=== PATIENT | male | born 1950 | race Two or more races ===

== ENCOUNTER 2016-11-21 17:44 | Inpatient (IN) | payer OTHER, MEDICAID ==
[~2016-11-21] VITALS: Ht 190.5 cm; Wt 146.3 kg
[2016-11-21 18:57] LABS: Basophils # (auto) 0.1 uL; Basophils % (auto) 0.5 % (0.0-2.0); Eosinophils # (auto) 0.5 uL; Eosinophils % (auto) 4.7 % (0.0-7.0); Hematocrit 46.6 % (41.0-53.0); Hemoglobin 15.1 g/dL (13.5-17.5); Lymphocytes # (auto) 2.2 uL; Lymphocytes % (auto) 21.5 % (10.0-50.0); Mean Corpuscular Hemoglobin 29.4 pg (28.0-32.0); Mean Corpuscular Hgb Conc. 32.4 g/dL (32.0-36.0); Mean Corpuscular Volume 90.9 fL (80.0-100.0); Mean Platelet Volume 9.1 fL (7.4-10.4); Monocytes # (auto) 0.7 uL; Monocytes % (auto) 6.5 % (0.0-12.0); Neutrophils # (auto) 6.8 uL; Neutrophils % (auto) 66.8 % (37.0-80.0); Platelet Count (auto) 257 10^3/uL (140-450); Red Cell Distribution Width 14.9 % (11.6-16.0); White Blood Cell 10.2 10^3/uL (4.4-10.8)
[2016-11-21 19:11] LABS: Albumin 3.6 g/dL (3.4-5.0); BUN/Creatinine Ratio 21.6; Calcium 8.1 mg/dL (8.5-10.1); Magnesium 2.3 mg/dL (1.6-2.6); Potassium 3.1 mmol/L (3.5-5.1)
[2016-11-21 19:14] LABS: Bilirubin, Total 0.8 mg/dL (0.2-1.0); Total Protein 7.9 g/dL (6.4-8.2)
[2016-11-21 19:21] LABS: B-Type Natriuretic Peptide 23.22 pg/mL (0-100)
[2016-11-21 19:42] LABS: Temperature: 21.9 C (20.0-25.0)
[2016-11-22 05:03] LABS: INR 1.05 (0.9-1.15); Partial Thromboplastin Time 29.7 sec (22.64-33.71); Prothrombin Time 10.8 sec (9.37-12.3)
[2016-11-22] MEDS ORDERED: FUROSEMIDE 40 MG/4 ML VIAL IV ONE (08:00)
[2016-11-22] MEDS ORDERED: VANCOMYCIN 1GM/250ML D5W 250 ML IV ONE (08:00)
[2016-11-22] MEDS ORDERED: cefTRIAXone 1GM/50ML D5W 50 ML IV ONE (08:00)
[2016-11-22] MEDS ORDERED: AMLO10TA2 (08:43)
[2016-11-22] MEDS ORDERED: POTA8TAB2 (08:43)
[2016-11-22] MEDS ORDERED: PAR20T (08:43)
[2016-11-22] MEDS ORDERED: FURO40TA4 (08:43)
[2016-11-22] MEDS ORDERED: DIAZ10TA3 (08:43)
[2016-11-22] MEDS ORDERED: CARV3.1240 (08:43)
[2016-11-22] MEDS ORDERED: POTASSIUM CHL 20 Meq TABLET PO ONE (09:15)
[2016-11-22] MEDS ORDERED: DEXTROSE (50%) 50ML SYRG IV PRN (09:30)
[2016-11-22] MEDS ORDERED: ALBUTEROL SULF 2.5 MG/0.5ML(0.5%) NEB SOLN NEB PRN (09:30)
[2016-11-22] MEDS ORDERED: PROMETHAZINE HCL 25 MG/ML 1ML IV PRN (09:30)
[2016-11-22] MEDS ORDERED: LORazepam 0.5 MG TAB PO PRN (09:30)
[2016-11-22] MEDS ORDERED: HYDROcodone-ACET 5/325MG TAB PO PRN (09:30)
[2016-11-22] MEDS ORDERED: ACETAMINOPHEN 500 MG TAB PO PRN (09:30)
[2016-11-22] MEDS ORDERED: TEMAZEPAM 15 MG CAP PO PRN (09:30)
[2016-11-22] MEDS ORDERED: LACTULOSE 20Gm/30ML SOLN PO PRN (09:30)
[2016-11-22] MEDS ORDERED: MORPHINE SULF INJ 2 MG/ML SYRINGE 1ML IV PRN ×2 (09:30)
[2016-11-22] MEDS ORDERED: NITROGLYCERIN 0.4 MG SL TAB SL PRN (09:30)
[2016-11-22] MEDS: ENOXAPARIN SOD 40 MG/0.4 ML SYRINGE SC SCH (10:00)
[2016-11-22] MEDS: CLINDAMYCIN 600MG IV 50 ML IV SCH ×2 (10:00→17:38)
[2016-11-22 10:30] VITALS: BP 121/84
[2016-11-22] MEDS: ACCU-CHEK COMFORT CURVE STRIP VI SCH ×3 (12:00→23:54)
[2016-11-22] MEDS: POTASSIUM CHL 20 Meq TABLET PO SCH (12:40)
[2016-11-22 13:01] VITALS: BP 134/79
[2016-11-22 17:44] VITALS: BP 134/80
[2016-11-22 20:49] VITALS: BP 134/80
[2016-11-22 22:13] VITALS: BP 126/73
[2016-11-23] MEDS: CLINDAMYCIN 600MG IV 50 ML IV SCH ×2 (02:00→11:29)
[2016-11-23 04:37] LABS: Urine Bilirubin Negative (Negative); Urine Blood Negative /uL (Negative); Urine Color Yellow (Yellow); Urine Glucose Normal (Normal); Urine Ketone Negative (Negative); Urine Mucus FEW (None Seen); Urine Nitrite Negative (Negative); Urine RBC 1 /hpf (0 - 3); Urine Squamous Epithelial Cell FEW /hpf (<5); Urine Urobilinogen Normal (Negative); Urine pH 5.5 (5.0-8.0)
[2016-11-23 05:14] VITALS: BP 125/75
[2016-11-23] MEDS: ACCU-CHEK COMFORT CURVE STRIP VI SCH (06:24)
[2016-11-23 07:55] LABS: Basophils # (auto) 0.1 uL; Basophils % (auto) 0.8 % (0.0-2.0); Eosinophils # (auto) 0.4 uL; Eosinophils % (auto) 5.5 % (0.0-7.0); Hematocrit 47.6 % (41.0-53.0); Hemoglobin 15.4 g/dL (13.5-17.5); Lymphocytes % (auto) 27.2 % (10.0-50.0); Mean Corpuscular Hemoglobin 29.5 pg (28.0-32.0); Mean Corpuscular Hgb Conc. 32.4 g/dL (32.0-36.0); Mean Platelet Volume 9.3 fL (7.4-10.4); Monocytes # (auto) 0.7 uL; Monocytes % (auto) 9.7 % (0.0-12.0); Neutrophils # (auto) 4.2 uL; Neutrophils % (auto) 56.8 % (37.0-80.0); Platelet Count (auto) 253 10^3/uL (140-450); Red Cell Distribution Width 15.2 % (11.6-16.0); White Blood Cell 7.4 10^3/uL (4.4-10.8)
[2016-11-23 08:21] LABS: Albumin 3.8 g/dL (3.4-5.0); BUN/Creatinine Ratio 27.3; Calcium 8.9 mg/dL (8.5-10.1); Potassium 3.5 mmol/L (3.5-5.1); Total Protein 7.8 g/dL (6.4-8.2)
[2016-11-23 08:24] LABS: B-Type Natriuretic Peptide 21.7 pg/mL (0-100)
[2016-11-23] MEDS: POTASSIUM CHL 20 Meq TABLET PO SCH (08:42)
[2016-11-23 08:54] VITALS: BP 119/74
[2016-11-23] MEDS ORDERED: cefTRIAXone 1GM/50ML D5W 50 ML IV SCH (09:00)
[2016-11-23] MEDS: ENOXAPARIN SOD 40 MG/0.4 ML SYRINGE SC SCH (10:00)
[2016-11-23] MEDS ORDERED: FUROSEMIDE 40 MG/4 ML VIAL IV SCH (10:00)
[2016-11-23 12:54] VITALS: BP 129/60
[2016-11-23] MEDS ORDERED: IOHEXOL 350 MG/ML 100ML IJ ONE (13:19)
[2016-11-23] MEDS ORDERED: NOR5T PO (14:41)
== END 2016-11-23 18:39 | disposition left against medical advice (07) | DRG 603 ==
LOC: ER 17:54 → TELE 17:55 → TELE-EAST 11-22 10:30
PROVIDERS: ADMIT Internal Medicine; ATTEND Internal Medicine
DX: L03.116 Cellulitis of left lower limb (principal); L03.115 Cellulitis of right lower limb; E66.01 Morbid (severe) obesity due to excess calories; E87.6 Hypokalemia; R73.9 Hyperglycemia, unspecified; I87.8 Other specified disorders of veins; Z82.49 Family history of ischemic heart disease and other diseases of the circulatory system; I10 Essential (primary) hypertension
CPT/HCPCS: 36415; 71020; 80053; 80061; 81001; 82550; 82962; 83036; 83735; 83880; 84443; 84484; 85025; 85049; 85379; 85610; 85652; 85730; 87040; 93005; 93306; 93970; 96365; 96367; 96375; J0696; J3490

== ENCOUNTER 2017-12-26 12:38 | Inpatient (IN) | payer OTHER, MEDICAID ==
[~2017-12-26] VITALS: Ht 190.5 cm; Wt 120.9 kg
[~2017-12-26 12:38] MED LIST: AMLO10TA2; CARV3.1240; DIAZ10TA3; FURO40TA4; HYDR-4683 PO; PAR20T; POTA8TAB2
[2017-12-26 14:03] LABS: Basophils # (auto) 0.1 uL; Basophils % (auto) 1.6 % (0.0-2.0); Eosinophils # (auto) 0.1 uL; Eosinophils % (auto) 1.6 % (0.0-7.0); Hematocrit 44.8 % (41.0-53.0); Lymphocytes # (auto) 0.4 uL; Lymphocytes % (auto) 5.6 % (10.0-50.0); Mean Corpuscular Hemoglobin 30.9 pg (28.0-32.0); Mean Corpuscular Hgb Conc. 33.4 g/dL (32.0-36.0); Mean Corpuscular Volume 92.5 fL (80.0-100.0); Monocytes # (auto) 0.7 uL; Monocytes % (auto) 9.1 % (0.0-12.0); Neutrophils # (auto) 5.9 uL; Neutrophils % (auto) 82.1 % (37.0-80.0); Nucleated Red Blood Cells % 0.2 %; Platelet Count (auto) 200 10^3/uL (140-450); Red Blood Cells 4.84 10^6/uL (4.5-5.90); Red Cell Distribution Width 14.4 % (11.8-14.3); White Blood Cell 7.2 10^3/uL (4.4-10.8)
[2017-12-26 14:12] LABS: Alanine Aminotransferase 18 U/L (16-61); Albumin 3.6 g/dL (3.4-5.0); Alkaline Phosphatase 86 U/L (45-117); Anion Gap 10 (5-15); Aspartate Aminotransferase 20 U/L (15-37); BUN/Creatinine Ratio 18.1; Bilirubin, Total 1.3 mg/dL (0.2-1.0); Blood Urea Nitrogen 17 mg/dL (7-18); Calcium 8.3 mg/dL (8.5-10.1); Carbon Dioxide 29 mmol/L (21-32); Chloride 101 mmol/L (98-107); GFR African American 102 mL/min; GFR Non-African American 85 mL/min; Glucose 95 mg/dL (74-106); Sodium 140 mmol/L (136-145); Total Protein 7.4 g/dL (6.4-8.2)
[2017-12-26 14:19] LABS: Potassium 2.7 mmol/L (3.5-5.1)
[2017-12-26] MEDS ORDERED: cefTRIAXone 1GM/10ml IVPUSH 10 ML IV ONE (18:00)
[2017-12-26] MEDS ORDERED: ACETAMINOPHEN 500 MG TAB PO ONE (18:00)
[2017-12-26 18:31] LABS: INR 0.99 (0.9-1.15); Partial Thromboplastin Time 28.3 sec (22.64-33.71); Prothrombin Time 10.8 sec (9.37-12.3)
[2017-12-26 19:17] LABS: Urine Bacteria FEW /hpf (None Seen); Urine Blood Negative /uL (Negative); Urine Mucus FEW (None Seen); Urine Specific Gravity 1.027 (1.001-1.035); Urine WBC 1 /hpf (0 - 3)
[2017-12-26] MEDS ORDERED: POTASSIUM CHL 20 Meq TABLET PO ONE ×2 (19:45)
[2017-12-26] MEDS ORDERED: ONDANSETRON HCL 4 MG/2 ML VIAL IV PRN (20:45)
[2017-12-26] MEDS ORDERED: ACETAMINOPHEN 325 MG TAB PO PRN (20:45)
[2017-12-26] MEDS ORDERED: TEMAZEPAM 15 MG CAP PO PRN (20:45)
[2017-12-26] MEDS ORDERED: DOCUSATE SOD 100 MG CAP PO PRN (20:45)
[2017-12-26 21:40] VITALS: BP 118/68
[2017-12-26] MEDS: GABAPENTIN 100 MG CAP PO SCH (22:29)
[2017-12-26] MEDS: CARVEDILOL 3.125 MG TAB PO SCH (22:30)
[2017-12-26] MEDS: FAMOTIDINE 20 MG TAB PO SCH (22:30)
[2017-12-27 00:15] VITALS: BP 118/68
[2017-12-27 05:00] VITALS: BP 131/79
[2017-12-27] MEDS: FUROSEMIDE 40 MG TAB PO SCH ×2 (06:12→18:20)
[2017-12-27 07:09] LABS: Hematocrit 40.5 % (41.0-53.0); Hemoglobin 13.7 g/dL (13.5-17.5); Mean Corpuscular Hemoglobin 31.2 pg (28.0-32.0); Mean Corpuscular Hgb Conc. 33.7 g/dL (32.0-36.0); Mean Corpuscular Volume 92.7 fL (80.0-100.0); Platelet Count (auto) 151 10^3/uL (140-450); Red Blood Cells 4.37 10^6/uL (4.5-5.90); Red Cell Distribution Width 14.7 % (11.8-14.3); White Blood Cell 5.9 10^3/uL (4.4-10.8)
[2017-12-27 07:17] LABS: Band Neutrophils % (manual) 0
[2017-12-27 07:18] LABS: Basophils % (manual) 0 (0.0-2.0); Blast Cells 0; Eosinophils % (manual) 0 (0-7); Metamyelocytes % 0; Myelocytes % 0; Promyelocytes % 0; Reactive Lymphocytes 0
[2017-12-27 07:25] LABS: BUN/Creatinine Ratio 21.5; Calcium 7.5 mg/dL (8.5-10.1)
[2017-12-27 07:35] LABS: Bilirubin, Total 0.9 mg/dL (0.2-1.0); Total Protein 6.3 g/dL (6.4-8.2)
[2017-12-27 08:07] LABS: Potassium 2.8 mmol/L (3.5-5.1)
[2017-12-27] MEDS ORDERED: POTASSIUM CHLORIDE 40 MEQ, LIDOCAINE 1% (LOCAL ANESTH.) 4 ML in SODIUM CHL 0.9% 100 ML IV ONE (08:15)
[2017-12-27] MEDS ORDERED: POTASSIUM CHL 20 Meq TABLET PO ONE ×2 (08:15→17:00)
[2017-12-27] MEDS ORDERED: SOD CHL 0.9%/ KCL 40MEQ 1,000 ML IV SCH (08:15)
[2017-12-27 09:00] VITALS: BP 109/63
[2017-12-27] MEDS: amLODIPine BESYLATE 5 MG TAB PO SCH (09:37)
[2017-12-27] MEDS: FAMOTIDINE 20 MG TAB PO SCH ×2 (09:37→22:34)
[2017-12-27] MEDS: GABAPENTIN 100 MG CAP PO SCH ×2 (09:37→22:35)
[2017-12-27] MEDS: ENOXAPARIN SOD 40 MG/0.4 ML SYRINGE SC SCH (09:38)
[2017-12-27] MEDS: CARVEDILOL 3.125 MG TAB PO SCH ×2 (09:38→22:35)
[2017-12-27 10:18] LABS: Lymphocytes % (manual) 19 (10.0-50.0); Monocytes % (manual) 19 (0-12)
[2017-12-27 13:00] VITALS: BP 108/72
[2017-12-27] MEDS ORDERED: MAGNESIUM SULFATE 1GM/100ML 100 ML IV ONE (13:00)
[2017-12-27] MEDS: HYDROcodone-ACET 5/325MG TAB PO PRN (15:29)
[2017-12-27 16:29] LABS: Magnesium 2.7 mg/dL (1.6-2.6); Potassium 3.3 mmol/L (3.5-5.1)
[2017-12-27] MEDS: PROMETHAZINE W/CODEINE 5 ML ORAL SYRUP PO PRN (16:34)
[2017-12-27 17:20] VITALS: BP 108/66
[2017-12-27] MEDS: BUDESONIDE (INHALATION) 0.5 MG/2 ML NEB NEB SCH (19:33)
[2017-12-27] MEDS: ALBUTEROL SULF 2.5 MG/0.5ML(0.5%) NEB SOLN NEB SCH (19:33)
[2017-12-27 22:00] VITALS: BP 113/69
[2017-12-27] MEDS ORDERED: cefTRIAXone 1GM/10ml IVPUSH 10 ML IV SCH (22:00)
[2017-12-27] MEDS: POTASSIUM CHL 20 Meq TABLET PO SCH (22:34)
[2017-12-28 01:27] VITALS: BP 108/66
[2017-12-28 05:00] VITALS: BP 133/74
[2017-12-28] MEDS: FUROSEMIDE 40 MG TAB PO SCH ×2 (06:00→18:45)
[2017-12-28 06:09] LABS: Albumin 3.1 g/dL (3.4-5.0); BUN/Creatinine Ratio 23.4; Bilirubin, Total 0.6 mg/dL (0.2-1.0); Calcium 7.9 mg/dL (8.5-10.1); Magnesium 2.4 mg/dL (1.6-2.6); Potassium 3.4 mmol/L (3.5-5.1); Total Protein 6.8 g/dL (6.4-8.2)
[2017-12-28] MEDS: ALBUTEROL SULF 2.5 MG/0.5ML(0.5%) NEB SOLN NEB SCH ×4 (06:42→18:00)
[2017-12-28 08:22] VITALS: BP 126/71
[2017-12-28] MEDS: FAMOTIDINE 20 MG TAB PO SCH (09:29)
[2017-12-28] MEDS: amLODIPine BESYLATE 5 MG TAB PO SCH (09:30)
[2017-12-28] MEDS: GABAPENTIN 100 MG CAP PO SCH (09:31)
[2017-12-28] MEDS: CARVEDILOL 3.125 MG TAB PO SCH (09:31)
[2017-12-28] MEDS: POTASSIUM CHL 20 Meq TABLET PO SCH (09:31)
[2017-12-28] MEDS: ENOXAPARIN SOD 40 MG/0.4 ML SYRINGE SC SCH (09:33)
[2017-12-28] MEDS: BUDESONIDE (INHALATION) 0.5 MG/2 ML NEB NEB SCH (10:45)
[2017-12-28 12:43] VITALS: BP 131/77
[2017-12-28] MEDS ORDERED: ALBUAER3 IN (16:10)
[2017-12-28] MEDS ORDERED: AZIT500T4 PO (16:10)
[2017-12-28] MEDS ORDERED: PRED1PAK9 PO (16:10)
[2017-12-28] MEDS: PROMETHAZINE W/CODEINE 5 ML ORAL SYRUP PO PRN (16:12)
[2017-12-28] MEDS: HYDROcodone-ACET 5/325MG TAB PO PRN (16:13)
[2017-12-28 16:21] VITALS: BP 124/81
[2017-12-29] MEDS ORDERED: PRED1PAK9 PO (11:50)
[2017-12-29] MEDS ORDERED: ALBUAER3 IN (11:50)
[2017-12-29] MEDS ORDERED: AZIT500T4 PO (11:50)
== END 2017-12-28 19:00 | disposition home or self-care (01) | DRG 202 ==
LOC: ER 12:38 → OVERFLOW 12:39 → TELE-WESTW 21:28
PROVIDERS: ADMIT Nurse Practitioner; ATTEND Hospitalist
DX: J20.9 Acute bronchitis, unspecified (principal); J18.1 Lobar pneumonia, unspecified organism; I11.0 Hypertensive heart disease with heart failure; I50.9 Heart failure, unspecified; E87.6 Hypokalemia; E78.5 Hyperlipidemia, unspecified; Z82.49 Family history of ischemic heart disease and other diseases of the circulatory system
CPT/HCPCS: 36415; 71046; 80053; 81001; 83605; 83735; 83880; 84132; 84484; 85007; 85025; 85027; 85610; 85730; 87040; 87804; 93005; 94640; 94761; 96374; J2001

== ENCOUNTER 2018-07-29 16:46 | Inpatient (IN) | payer OTHER, MEDICAID ==
[~2018-07-29] VITALS: Ht 190.5 cm; Wt 116.2 kg
[~2018-07-29 16:46] MED LIST changes: +ALBUAER3 IN; +AMLO10TA12; -AMLO10TA2; +AZIT500T4 PO; +PRED1PAK9 PO
[2018-07-29 17:39] LABS: Basophils # (auto) 0.1 uL; Basophils % (auto) 0.8 % (0.0-2.0); Eosinophils # (auto) 0.7 uL; Hematocrit 44.1 % (41.0-53.0); Hemoglobin 14.9 g/dL (13.5-17.5); Lymphocytes # (auto) 1.4 uL; Lymphocytes % (auto) 17.6 % (10.0-50.0); Mean Corpuscular Hemoglobin 31.3 pg (28.0-32.0); Mean Corpuscular Hgb Conc. 33.7 g/dL (32.0-36.0); Mean Corpuscular Volume 92.9 fL (80.0-100.0); Monocytes % (auto) 12.7 % (0.0-12.0); Neutrophils % (auto) 60.9 % (37.0-80.0); Nucleated Red Blood Cells % 0.3 %; Platelet Count (auto) 225 10^3/uL (140-450); Red Blood Cells 4.75 10^6/uL (4.5-5.90); White Blood Cell 8.2 10^3/uL (4.4-10.8)
[2018-07-29 17:55] LABS: Alanine Aminotransferase 17 U/L (16-61); Albumin 3.5 g/dL (3.4-5.0); Anion Gap 9 (5-15); Aspartate Aminotransferase 16 U/L (15-37); BUN/Creatinine Ratio 25.3; Blood Urea Nitrogen 23 mg/dL (7-18); Calcium 8.5 mg/dL (8.5-10.1); Carbon Dioxide 30 mmol/L (21-32); Chloride 104 mmol/L (98-107); GFR African American 106 mL/min; GFR Non-African American 88 mL/min; Glucose 90 mg/dL (74-106); Magnesium 2.3 mg/dL (1.6-2.6); Potassium 3.5 mmol/L (3.5-5.1); Sodium 143 mmol/L (136-145)
[2018-07-29 18:00] LABS: Alkaline Phosphatase 111 U/L (45-117); Bilirubin, Total 0.7 mg/dL (0.2-1.0); Total Protein 7.4 g/dL (6.4-8.2)
[2018-07-29 19:50] LABS: INR 0.93 (0.9-1.15); Partial Thromboplastin Time 28.9 sec (23.78-33.04)
[2018-07-29] MEDS ORDERED: ACETAMINOPHEN 325 MG TAB PO PRN (21:15)
[2018-07-29] MEDS ORDERED: cefTRIAXone 1GM/10ml IVPUSH 10 ML IV ONE (21:15)
[2018-07-29] MEDS ORDERED: ONDANSETRON HCL 4 MG/2 ML VIAL IV PRN (21:15)
[2018-07-29] MEDS ORDERED: HYDROcodone-ACET 5/325MG TAB PO PRN (21:15)
[2018-07-29] MEDS ORDERED: GABAPENTIN 100 MG CAP PO ONE (21:15)
[2018-07-29] MEDS ORDERED: DOCUSATE SOD 100 MG CAP PO PRN (21:15)
[2018-07-29] MEDS ORDERED: POTASSIUM CHLORIDE 8 MEQ TAB PO ONE (21:45)
[2018-07-29] MEDS: GABAPENTIN 100 MG CAP PO SCH (22:00)
[2018-07-29] MEDS: FAMOTIDINE 20 MG TAB PO SCH (22:17)
[2018-07-29] MEDS: CARVEDILOL 3.125 MG TAB PO SCH (22:17)
[2018-07-29 23:10] VITALS: BP 119/69
[2018-07-29] MEDS: CLINDAMYCIN 600MG IV 50 ML IV SCH (23:45)
[2018-07-30] MEDS ORDERED: LISI-285 PO (00:09)
[2018-07-30 00:19] VITALS: BP 119/69
[2018-07-30] MEDS ORDERED: diphenhdrAMINE HCL 50 MG/1 ML VL IV ONE (00:20)
[2018-07-30] MEDS ORDERED: methylPREDNISolone SOD SUCC 125 MG/2 ML VL IV ONE (00:20)
[2018-07-30] MEDS ORDERED: TEMAZEPAM 15 MG CAP PO ONE (00:20)
[2018-07-30 05:00] VITALS: BP 117/65
[2018-07-30] MEDS: CLINDAMYCIN 600MG IV 50 ML IV SCH ×2 (05:54→14:21)
[2018-07-30 07:18] LABS: Basophils # (auto) 0 uL; Basophils % (auto) 0.2 % (0.0-2.0); Eosinophils # (auto) 0 uL; Eosinophils % (auto) 0.4 % (0.0-7.0); Hematocrit 45.4 % (41.0-53.0); Hemoglobin 15.6 g/dL (13.5-17.5); Lymphocytes # (auto) 0.6 uL; Lymphocytes % (auto) 11.4 % (10.0-50.0); Mean Corpuscular Hgb Conc. 34.3 g/dL (32.0-36.0); Mean Corpuscular Volume 93.2 fL (80.0-100.0); Monocytes # (auto) 0.1 uL; Monocytes % (auto) 1.8 % (0.0-12.0); Neutrophils # (auto) 4.5 uL; Neutrophils % (auto) 86.2 % (37.0-80.0); Platelet Count (auto) 203 10^3/uL (140-450); Red Blood Cells 4.87 10^6/uL (4.5-5.90); White Blood Cell 5.2 10^3/uL (4.4-10.8)
[2018-07-30 07:40] LABS: Albumin 3.5 g/dL (3.4-5.0); BUN/Creatinine Ratio 26.7; Bilirubin, Total 0.8 mg/dL (0.2-1.0); Calcium 8.7 mg/dL (8.5-10.1); Potassium 3.5 mmol/L (3.5-5.1); Total Protein 7.7 g/dL (6.4-8.2)
[2018-07-30 09:00] VITALS: BP 127/79
[2018-07-30] MEDS ORDERED: cefTRIAXone 1GM/10ml IVPUSH 10 ML IV SCH (09:00)
[2018-07-30] MEDS ORDERED: PARoxetine 20 MG TAB PO SCH (10:00)
[2018-07-30] MEDS: GABAPENTIN 100 MG CAP PO SCH (10:00)
[2018-07-30] MEDS ORDERED: ENOXAPARIN SOD 40 MG/0.4 ML SYRINGE SC SCH (10:00)
[2018-07-30] MEDS ORDERED: FUROSEMIDE 40 MG TAB PO SCH (10:00)
[2018-07-30] MEDS ORDERED: amLODIPine BESYLATE 5 MG TAB PO SCH (10:00)
[2018-07-30] MEDS ORDERED: predniSONE 5 MG TAB PO SCH (10:00)
[2018-07-30] MEDS ORDERED: POTASSIUM CHLORIDE 8 MEQ TAB PO SCH (10:00)
[2018-07-30] MEDS: FAMOTIDINE 20 MG TAB PO SCH (10:08)
[2018-07-30] MEDS: CARVEDILOL 3.125 MG TAB PO SCH (10:09)
[2018-07-30 13:00] VITALS: BP 126/68
[2018-07-30] MEDS ORDERED: IOHEXOL 350 MG/ML 100ML IJ ONE (16:36)
[2018-07-30 17:00] VITALS: BP 124/76
[2018-07-30] MEDS ORDERED: LEVOFLOXACIN 500MG 100 ML IV ONE (17:15)
[2018-07-30] MEDS ORDERED: CLIN1CAP4 PO (17:57)
[2018-07-30] MEDS ORDERED: LEVO500T21 PO (17:57)
[2018-07-30 18:49] VITALS: BP 124/76
[2018-07-31] MEDS ORDERED: LEVOFLOXACIN 500MG 100 ML IV SCH (10:00)
== END 2018-07-30 20:25 | disposition home health service (06) | DRG 603 ==
LOC: ER 16:53 → EAST 16:54
PROVIDERS: ADMIT Nurse Practitioner; ATTEND Internal Medicine
DX: L03.116 Cellulitis of left lower limb (principal); L03.115 Cellulitis of right lower limb; E78.5 Hyperlipidemia, unspecified; I11.0 Hypertensive heart disease with heart failure; I50.9 Heart failure, unspecified; I27.20 Pulmonary hypertension, unspecified; I87.2 Venous insufficiency (chronic) (peripheral); Z82.49 Family history of ischemic heart disease and other diseases of the circulatory system; Z79.899 Other long term (current) drug therapy
CPT/HCPCS: 36415; 71046; 71275; 80053; 83735; 83880; 84484; 85025; 85379; 85610; 85730; 87040; 93005; 93970; 96374; 96375; J0696; J1956; J3490

== ENCOUNTER 2018-08-24 16:54 | Inpatient (IN) | payer OTHER, MEDICAID ==
[~2018-08-24] VITALS: Ht 185.4 cm; Wt 115.7 kg
[~2018-08-24 16:54] MED LIST changes: -AZIT500T4 PO; +CLIN1CAP4 PO; +LEVO500T21 PO; +LISI-285 PO; -PRED1PAK9 PO
[2018-08-24] MEDS ORDERED: SODIUM CHLORIDE 0.9% 500 ML IV ONE (18:28)
[2018-08-24] MEDS ORDERED: MORPHINE SULFATE 4 MG/ML SYR/VIAL IV ONE (18:30)
[2018-08-24] MEDS ORDERED: ONDANSETRON HCL 4 MG/2 ML VIAL IV ONE (18:30)
[2018-08-24 18:36] LABS: Basophils # (auto) 0.1 uL; Basophils % (auto) 0.7 % (0.0-2.0); Eosinophils # (auto) 0.8 uL; Eosinophils % (auto) 10.1 % (0.0-7.0); Hematocrit 46.5 % (41.0-53.0); Hemoglobin 15.7 g/dL (13.5-17.5); Lymphocytes # (auto) 1.8 uL; Lymphocytes % (auto) 21.5 % (10.0-50.0); Mean Corpuscular Hemoglobin 31.5 pg (28.0-32.0); Mean Corpuscular Hgb Conc. 33.8 g/dL (32.0-36.0); Mean Corpuscular Volume 93.2 fL (80.0-100.0); Monocytes # (auto) 1.1 uL; Monocytes % (auto) 13.3 % (0.0-12.0); Neutrophils # (auto) 4.5 uL; Neutrophils % (auto) 54.4 % (37.0-80.0); Nucleated Red Blood Cells % 0.1 %; Platelet Count (auto) 220 10^3/uL (140-450); Red Blood Cells 4.99 10^6/uL (4.5-5.90); Red Cell Distribution Width 15.6 % (11.8-14.3); White Blood Cell 8.3 10^3/uL (4.4-10.8)
[2018-08-24 18:57] LABS: Alanine Aminotransferase 16 U/L (16-61); Anion Gap 11 (5-15); Aspartate Aminotransferase 15 U/L (15-37); BUN/Creatinine Ratio 17.8; Blood Urea Nitrogen 16 mg/dL (7-18); Calcium 8.5 mg/dL (8.5-10.1); Carbon Dioxide 28 mmol/L (21-32); Chloride 102 mmol/L (98-107); GFR African American 107 mL/min; GFR Non-African American 89 mL/min; Glucose 92 mg/dL (74-106); Magnesium 2.2 mg/dL (1.6-2.6); Potassium 3.1 mmol/L (3.5-5.1); Sodium 141 mmol/L (136-145)
[2018-08-24 19:02] LABS: Alkaline Phosphatase 99 U/L (45-117); Total Protein 7.7 g/dL (6.4-8.2)
[2018-08-24] MEDS ORDERED: CLINDAMYCIN 600MG IV 50 ML IV ONE (19:45)
[2018-08-24] MEDS ORDERED: GABAPENTIN 100 MG CAP PO ONE (19:45)
[2018-08-24] MEDS ORDERED: diphenhdrAMINE HCL 50 MG/1 ML VL IV ONE (21:00)
[2018-08-24] MEDS ORDERED: cefTRIAXone 1GM/50ML D5W 50 ML IV ONE (21:45)
[2018-08-24] MEDS ORDERED: ACETAMINOPHEN 325 MG TAB PO PRN (21:45)
[2018-08-24] MEDS ORDERED: TEMAZEPAM 15 MG CAP PO PRN (21:45)
[2018-08-24] MEDS ORDERED: ONDANSETRON HCL 4 MG/2 ML VIAL IV PRN (21:45)
[2018-08-24] MEDS: TRIAMCINOLONE ACET 0.1% TOPICAL CREAM 15GM TOP SCH (22:00)
[2018-08-24] MEDS: CLINDAMYCIN 600MG IV 50 ML IV SCH (22:00)
[2018-08-24] MEDS: HYDROcodone-ACET 5/325MG TAB PO PRN (22:26)
[2018-08-24] MEDS: CARVEDILOL 3.125 MG TAB PO SCH (22:27)
[2018-08-24] MEDS: FAMOTIDINE 20 MG TAB PO SCH (22:27)
[2018-08-24] MEDS: GABAPENTIN 100 MG CAP PO SCH (22:27)
[2018-08-25] MEDS ORDERED: ALBUMIN 5% 250 ML IV ONE (00:45)
[2018-08-25] MEDS: CLINDAMYCIN 600MG IV 50 ML IV SCH ×3 (06:40→21:01)
[2018-08-25] MEDS: GABAPENTIN 100 MG CAP PO SCH ×3 (06:47→21:01)
[2018-08-25 07:29] LABS: Albumin 3.2 g/dL (3.4-5.0); Calcium 8.3 mg/dL (8.5-10.1); Potassium 3.3 mmol/L (3.5-5.1)
[2018-08-25 07:32] LABS: BUN/Creatinine Ratio 18.2; Bilirubin, Total 0.9 mg/dL (0.2-1.0); Total Protein 6.9 g/dL (6.4-8.2)
[2018-08-25 07:37] LABS: Basophils # (auto) 0 uL; Basophils % (auto) 0.9 % (0.0-2.0); Eosinophils # (auto) 0.6 uL; Eosinophils % (auto) 10.7 % (0.0-7.0); Hematocrit 44.3 % (41.0-53.0); Hemoglobin 14.7 g/dL (13.5-17.5); Lymphocytes # (auto) 1.6 uL; Lymphocytes % (auto) 28.4 % (10.0-50.0); Mean Corpuscular Hemoglobin 30.9 pg (28.0-32.0); Mean Corpuscular Hgb Conc. 33.1 g/dL (32.0-36.0); Mean Corpuscular Volume 93.2 fL (80.0-100.0); Monocytes # (auto) 0.7 uL; Monocytes % (auto) 13.2 % (0.0-12.0); Neutrophils # (auto) 2.6 uL; Neutrophils % (auto) 46.8 % (37.0-80.0); Platelet Count (auto) 188 10^3/uL (140-450); Red Blood Cells 4.75 10^6/uL (4.5-5.90); Red Cell Distribution Width 15.4 % (11.8-14.3); White Blood Cell 5.6 10^3/uL (4.4-10.8)
[2018-08-25] MEDS: cefTRIAXone 1GM/50ML D5W 50 ML IV SCH (09:00)
[2018-08-25 09:15] VITALS: BP 121/61
[2018-08-25] MEDS: PARoxetine 20 MG TAB PO SCH (10:00)
[2018-08-25] MEDS: TRIAMCINOLONE ACET 0.1% TOPICAL CREAM 15GM TOP SCH ×2 (10:00→21:01)
[2018-08-25] MEDS: ENOXAPARIN SOD 40 MG/0.4 ML SYRINGE SC SCH (10:00)
[2018-08-25] MEDS: HYDROcodone-ACET 5/325MG TAB PO PRN ×2 (10:50→14:30)
[2018-08-25] MEDS: HCTZ 25 MG TAB PO SCH (11:00)
[2018-08-25] MEDS: FAMOTIDINE 20 MG TAB PO SCH ×2 (11:00→21:01)
[2018-08-25] MEDS: LISINOPRIL 5 MG TAB PO SCH (11:00)
[2018-08-25] MEDS: CARVEDILOL 3.125 MG TAB PO SCH ×2 (11:00→21:12)
[2018-08-25] MEDS: FUROSEMIDE 40 MG TAB PO SCH (11:00)
[2018-08-25 13:13] VITALS: BP 100/51
[2018-08-25 16:38] VITALS: BP 91/48
[2018-08-25 19:39] VITALS: BP 135/78
[2018-08-25 20:00] VITALS: BP 110/61
[2018-08-25 22:00] VITALS: BP 110/61
[2018-08-26 05:00] VITALS: BP 119/71
[2018-08-26] MEDS: CLINDAMYCIN 600MG IV 50 ML IV SCH ×3 (05:52→21:34)
[2018-08-26] MEDS: GABAPENTIN 100 MG CAP PO SCH ×3 (05:52→21:36)
[2018-08-26 07:35] LABS: Basophils # (auto) 0 uL; Basophils % (auto) 0.7 % (0.0-2.0); Eosinophils # (auto) 0.4 uL; Eosinophils % (auto) 7.4 % (0.0-7.0); Hematocrit 44.2 % (41.0-53.0); Hemoglobin 14.9 g/dL (13.5-17.5); Lymphocytes # (auto) 1.2 uL; Lymphocytes % (auto) 20.4 % (10.0-50.0); Mean Corpuscular Hemoglobin 31.1 pg (28.0-32.0); Mean Corpuscular Hgb Conc. 33.8 g/dL (32.0-36.0); Mean Corpuscular Volume 92.2 fL (80.0-100.0); Monocytes # (auto) 0.7 uL; Monocytes % (auto) 12.7 % (0.0-12.0); Neutrophils # (auto) 3.4 uL; Neutrophils % (auto) 58.8 % (37.0-80.0); Nucleated Red Blood Cells % 0.1 %; Platelet Count (auto) 193 10^3/uL (140-450); Red Cell Distribution Width 15.7 % (11.8-14.3); White Blood Cell 5.8 10^3/uL (4.4-10.8)
[2018-08-26 07:46] LABS: BUN/Creatinine Ratio 18.2; Calcium 8.3 mg/dL (8.5-10.1); Magnesium 2.3 mg/dL (1.6-2.6); Potassium 3.4 mmol/L (3.5-5.1)
[2018-08-26] MEDS: cefTRIAXone 1GM/50ML D5W 50 ML IV SCH (08:50)
[2018-08-26] MEDS: PARoxetine 20 MG TAB PO SCH (08:52)
[2018-08-26] MEDS: ENOXAPARIN SOD 40 MG/0.4 ML SYRINGE SC SCH (08:52)
[2018-08-26] MEDS: FAMOTIDINE 20 MG TAB PO SCH ×2 (08:52→21:34)
[2018-08-26] MEDS: TRIAMCINOLONE ACET 0.1% TOPICAL CREAM 15GM TOP SCH ×2 (08:53→21:36)
[2018-08-26 09:00] VITALS: BP 105/59
[2018-08-26] MEDS ORDERED: diphenhdrAMINE HCL 12.5 MG/5 ML UD PO PRN (09:45)
[2018-08-26] MEDS: FUROSEMIDE 40 MG TAB PO SCH (10:00)
[2018-08-26] MEDS: CARVEDILOL 3.125 MG TAB PO SCH ×2 (10:00→21:35)
[2018-08-26] MEDS: HCTZ 25 MG TAB PO SCH (10:00)
[2018-08-26] MEDS: LISINOPRIL 5 MG TAB PO SCH (10:00)
[2018-08-26] MEDS: PIPERACILLIN-TAZOB 3.375GM 100 ML IV SCH ×3 (10:26→23:23)
[2018-08-26 13:00] VITALS: BP_SYST 115; BP_SYST 172; BP_DIAS 64; BP_DIAS 97
[2018-08-26 17:00] VITALS: BP 123/62
[2018-08-26 20:00] VITALS: BP 117/76
[2018-08-26] MEDS: HYDROcodone-ACET 5/325MG TAB PO PRN (20:08)
[2018-08-26 21:30] VITALS: BP 117/76
[2018-08-27] VITALS (7 sets, daily range): BP systolic 111–131; BP diastolic 66–79
[2018-08-27] MEDS: CLINDAMYCIN 600MG IV 50 ML IV SCH (05:09)
[2018-08-27] MEDS: GABAPENTIN 100 MG CAP PO SCH ×3 (06:15→22:47)
[2018-08-27] MEDS: PIPERACILLIN-TAZOB 3.375GM 100 ML IV SCH ×3 (06:15→17:49)
[2018-08-27 07:28] LABS: Basophils # (auto) 0.1 uL; Basophils % (auto) 0.8 % (0.0-2.0); Eosinophils # (auto) 0.4 uL; Eosinophils % (auto) 7.3 % (0.0-7.0); Hematocrit 45.5 % (41.0-53.0); Hemoglobin 15.4 g/dL (13.5-17.5); Lymphocytes # (auto) 1.3 uL; Lymphocytes % (auto) 21.6 % (10.0-50.0); Mean Corpuscular Hemoglobin 31.7 pg (28.0-32.0); Mean Corpuscular Hgb Conc. 33.7 g/dL (32.0-36.0); Monocytes # (auto) 0.8 uL; Monocytes % (auto) 12.2 % (0.0-12.0); Neutrophils # (auto) 3.6 uL; Neutrophils % (auto) 58.1 % (37.0-80.0); Nucleated Red Blood Cells % 0.1 %; Platelet Count (auto) 203 10^3/uL (140-450); Red Blood Cells 4.84 10^6/uL (4.5-5.90); Red Cell Distribution Width 15.4 % (11.8-14.3); White Blood Cell 6.2 10^3/uL (4.4-10.8)
[2018-08-27 07:56] LABS: BUN/Creatinine Ratio 17.6; Calcium 8.7 mg/dL (8.5-10.1); Magnesium 2.5 mg/dL (1.6-2.6); Potassium 3.6 mmol/L (3.5-5.1)
[2018-08-27] MEDS: ENOXAPARIN SOD 40 MG/0.4 ML SYRINGE SC SCH (10:00)
[2018-08-27] MEDS: DOXYCYCLINE 100MG/250ML 250 ML IV SCH ×2 (11:20→22:49)
[2018-08-27] MEDS: CARVEDILOL 3.125 MG TAB PO SCH ×2 (11:21→22:00)
[2018-08-27] MEDS: FAMOTIDINE 20 MG TAB PO SCH ×2 (11:22→22:47)
[2018-08-27] MEDS: PARoxetine 20 MG TAB PO SCH (11:22)
[2018-08-27] MEDS: HCTZ 25 MG TAB PO SCH (11:22)
[2018-08-27] MEDS: FUROSEMIDE 40 MG TAB PO SCH (11:22)
[2018-08-27] MEDS: LISINOPRIL 5 MG TAB PO SCH (11:23)
[2018-08-27] MEDS: TRIAMCINOLONE ACET 0.1% TOPICAL CREAM 15GM TOP SCH ×2 (11:23→22:48)
[2018-08-27] MEDS: ASCORBIC ACID 500 MG TAB PO SCH (22:47)
[2018-08-28] MEDS: PIPERACILLIN-TAZOB 3.375GM 100 ML IV SCH ×4 (01:12→17:29)
[2018-08-28 05:00] VITALS: BP 145/85
[2018-08-28] MEDS: GABAPENTIN 100 MG CAP PO SCH ×2 (06:16→14:11)
[2018-08-28 09:00] VITALS: BP 155/83
[2018-08-28] MEDS: DOXYCYCLINE 100MG/250ML 250 ML IV SCH (09:45)
[2018-08-28 09:47] LABS: Basophils # (auto) 0 uL; Basophils % (auto) 0.5 % (0.0-2.0); Eosinophils # (auto) 0.3 uL; Eosinophils % (auto) 4.8 % (0.0-7.0); Lymphocytes # (auto) 1.1 uL; Lymphocytes % (auto) 17.4 % (10.0-50.0); Mean Corpuscular Hgb Conc. 33.3 g/dL (32.0-36.0); Monocytes # (auto) 0.6 uL; Monocytes % (auto) 9.3 % (0.0-12.0); Neutrophils # (auto) 4.3 uL; Nucleated Red Blood Cells % 0.1 %; Platelet Count (auto) 208 10^3/uL (140-450); Red Blood Cells 4.84 10^6/uL (4.5-5.90); Red Cell Distribution Width 15.3 % (11.8-14.3); White Blood Cell 6.3 10^3/uL (4.4-10.8)
[2018-08-28] MEDS: CARVEDILOL 3.125 MG TAB PO SCH (10:00)
[2018-08-28] MEDS ORDERED: MULTIPLE VITAMIN TAB PO SCH (10:00)
[2018-08-28 10:06] LABS: BUN/Creatinine Ratio 17.4; Calcium 8.4 mg/dL (8.5-10.1); Magnesium 2.3 mg/dL (1.6-2.6); Potassium 3.4 mmol/L (3.5-5.1)
[2018-08-28] MEDS ORDERED: GASTROGRAFIN 30 ML SOL ONE (10:45)
[2018-08-28] MEDS ORDERED: IOHEXOL 300 MG/ML 100ML BOTTLE IJ ONE (10:45)
[2018-08-28] MEDS: HCTZ 25 MG TAB PO SCH (11:22)
[2018-08-28] MEDS: FAMOTIDINE 20 MG TAB PO SCH (11:23)
[2018-08-28] MEDS: PARoxetine 20 MG TAB PO SCH (11:23)
[2018-08-28] MEDS: ASCORBIC ACID 500 MG TAB PO SCH (11:23)
[2018-08-28] MEDS: FUROSEMIDE 40 MG TAB PO SCH (11:23)
[2018-08-28] MEDS: LISINOPRIL 5 MG TAB PO SCH (11:24)
[2018-08-28] MEDS: TRIAMCINOLONE ACET 0.1% TOPICAL CREAM 15GM TOP SCH (11:24)
[2018-08-28] MEDS: ENOXAPARIN SOD 40 MG/0.4 ML SYRINGE SC SCH (11:24)
[2018-08-28 14:46] VITALS: BP 126/68
== END 2018-08-28 10:50 | disposition home or self-care (01) | DRG 603 ==
LOC: ER 17:00 → OVERFLOW 17:01 → CENTRAL 08-25 08:35
PROVIDERS: ADMIT Nurse Practitioner; ATTEND Internal Medicine
DX: L03.116 Cellulitis of left lower limb (principal); I50.32 Chronic diastolic (congestive) heart failure; I50.9 Heart failure, unspecified; L03.115 Cellulitis of right lower limb; E88.09 Other disorders of plasma-protein metabolism, not elsewhere classified; F32.9 Major depressive disorder, single episode, unspecified; F41.9 Anxiety disorder, unspecified; I11.0 Hypertensive heart disease with heart failure; E66.9 Obesity, unspecified; I87.2 Venous insufficiency (chronic) (peripheral); Z86.711 Personal history of pulmonary embolism; Z82.49 Family history of ischemic heart disease and other diseases of the circulatory system; Z68.33 Body mass index [BMI] 33.0-33.9, adult
CPT/HCPCS: 36415; 71045; 80048; 80053; 83735; 83880; 84484; 85025; 87040; 93005; 93926; 93970; 94761; 96361; 96365; 96375; J0696; J2405; J2543; J3490

== ENCOUNTER 2019-07-22 13:39 | Emergency (ER) | payer OTHER, MEDICAID ==
[~2019-07-22] VITALS: Ht 188 cm; Wt 117.9 kg
[~2019-07-22 13:39] MED LIST changes: -AMLO10TA12; +AMLO10TA13; -CLIN1CAP4 PO; -HYDR-4683 PO; +HYDR-4833 PO; -LEVO500T21 PO
[2019-07-22 14:26] LABS: Basophils # (auto) 0.1 uL; Basophils % (auto) 0.7 % (0.0-2.0); Eosinophils # (auto) 0.1 uL; Eosinophils % (auto) 1.3 % (0.0-7.0); Hematocrit 43.5 % (41.0-53.0); Hemoglobin 14.9 g/dL (13.5-17.5); Lymphocytes # (auto) 1.4 uL; Lymphocytes % (auto) 14.5 % (10.0-50.0); Mean Corpuscular Hemoglobin 31.6 pg (28.0-32.0); Mean Corpuscular Hgb Conc. 34.1 g/dL (32.0-36.0); Mean Corpuscular Volume 92.7 fL (80.0-100.0); Monocytes # (auto) 1.3 uL; Monocytes % (auto) 13.5 % (0.0-12.0); Neutrophils # (auto) 6.8 uL; Platelet Count (auto) 196 10^3/uL (140-450); Red Cell Distribution Width 14.6 % (11.8-14.3); White Blood Cell 9.7 10^3/uL (4.4-10.8)
[2019-07-22 14:52] LABS: Alanine Aminotransferase 12 U/L (16-61); Albumin 3.6 g/dL (3.4-5.0); Anion Gap 7 (5-15); Aspartate Aminotransferase 14 U/L (15-37); Blood Urea Nitrogen 16 mg/dL (7-18); Calcium 8.3 mg/dL (8.5-10.1); Carbon Dioxide 31 mmol/L (21-32); Chloride 102 mmol/L (98-107); GFR African American 102 mL/min; GFR Non-African American 84 mL/min; Glucose 96 mg/dL (74-106); Potassium 3.1 mmol/L (3.5-5.1); Sodium 140 mmol/L (136-145)
[2019-07-22 14:59] LABS: Alkaline Phosphatase 98 U/L (45-117); Bilirubin, Total 1.3 mg/dL (0.2-1.0); Total Protein 7.1 g/dL (6.4-8.2)
[2019-07-22 19:35] VITALS: BP 131/60
[2019-07-22] MEDS ORDERED: POTASSIUM EFFERVESENT TAB 25 MEQ PO ONE (20:00)
== END 2019-07-22 20:35 | disposition home or self-care (01) ==
LOC: ER 13:39
DX: E87.6 Hypokalemia (principal); R60.9 Edema, unspecified; I11.0 Hypertensive heart disease with heart failure; I50.9 Heart failure, unspecified; E78.5 Hyperlipidemia, unspecified
CPT/HCPCS: 36415; 71046; 80053; 83880; 84484; 85025; 93005; 93971

== ENCOUNTER 2023-05-25 07:44 | Emergency (ER) | payer OTHER, MEDICAID ==
[~2023-05-25] VITALS: Ht 185.4 cm; Wt 131.6 kg
[~2023-05-25 07:44] MED LIST changes: -AMLO10TA13; +AMLO1TAB23; -POTA8TAB2; +POTA8TAB38
[2023-05-25 08:26] LABS: Basophils # (auto) 0.1 10 ^3/uL (0-0.2); Basophils % (auto) 0.7 % (0.0-2.0); Eosinophils # (auto) 0.6 10 ^3/uL (0-0.8); Eosinophils % (auto) 6.4 % (0.0-7.0); Hematocrit 46.3 % (41.0-53.0); Hemoglobin 15.5 g/dL (13.5-17.5); Lymphocytes # (auto) 1.9 10 ^3/uL (0.4-5.4); Lymphocytes % (auto) 20.2 % (10.0-50.0); Mean Corpuscular Hemoglobin 31.3 pg (28.0-32.0); Mean Corpuscular Hgb Conc. 33.5 g/dL (32.0-36.0); Mean Corpuscular Volume 93.4 fL (80.0-100.0); Monocytes # (auto) 0.9 10 ^3/uL (0-1.3); Monocytes % (auto) 9.7 % (0.0-12.0); Neutrophils # (auto) 5.9 10 ^3/uL (1.6-8.6); Red Blood Cells 4.95 10^6/uL (4.5-5.90); Red Cell Distribution Width 15.1 % (11.8-14.3); White Blood Cell 9.4 10^3/uL (4.4-10.8)
[2023-05-25 08:49] LABS: Albumin 3.8 g/dL (3.4-5.0); Potassium 3.3 mmol/L (3.5-5.1)
[2023-05-25 08:53] LABS: BUN/Creatinine Ratio 17.9 (10.0-20.0); Bilirubin, Total 0.7 mg/dL (0.2-1.0); Total Protein 7.3 g/dL (6.4-8.2)
[2023-05-25 08:56] LABS: Urine Bacteria FEW /hpf (None Seen); Urine Blood Negative /uL (Negative); Urine Hyaline Cast FEW /lpf (0 - 2); Urine Specific Gravity 1.011 (1.001-1.035); Urine WBC 1 /hpf (0 - 3)
[2023-05-25 11:16] VITALS: PULSE 61; RESP 20; O2SAT 95
[2023-05-25] MEDS ORDERED: CIPR-173 PO (11:22)
[2023-05-25 11:29] VITALS: BP 115/85; PULSE 57; RESP 12; O2SAT 94
[2023-05-26] MEDS ORDERED: BACIOIN EX (18:44)
== END 2023-05-25 11:47 | disposition home or self-care (01) ==
LOC: ER 07:44
DX: N49.2 Inflammatory disorders of scrotum (principal); F12.10 Cannabis abuse, uncomplicated; I11.0 Hypertensive heart disease with heart failure; I50.9 Heart failure, unspecified; E78.5 Hyperlipidemia, unspecified
CPT/HCPCS: 36415; 76870; 80053; 81001; 85025

== ENCOUNTER 2025-01-14 13:29 | Emergency (ER) | payer OTHER ==
[~2025-01-14] VITALS: Ht 188 cm; Wt 130.4 kg
[~2025-01-14 13:29] MED LIST changes: +BACIOIN EX; +CIPR-173 PO
[2025-01-14] MEDS ORDERED: FUROSEMIDE 100 MG/10ML VIAL IV ONE (14:15)
--- NOTE | 2025-01-14 14:16 | ED.PDOC ---
SOB-HPI HPI Comments HPI: Poor Historian. HPI: 74-year-old male presents with a chief complaint of SOB, cough, and chronic rash. Patient states that he has a rash that is localized to his abdomen, face, and chest. Patient states that his shortness of breath has been present for the past x 5 days. Patient also mentions he has been having a persistent cough for the past x 3 months. Patient reports that the cough is making him feel SOB now and it has been worsening. Patient denies any chest pain at this time. Patient is also reporting that he has bilateral lower leg swelling and would like to be evaluated for that as well. He said they always has some leg swelling that fluctuates in size which is not new for him. Past Medical History: CHF, HTN, HLD, SKIN CANCER, left FACIAL TUMOR, NEUROPATHY Past Surgical History: DENIES Social History: MARIJUANA AND ALCOHOL USE Medications: LASIX Allergies: NKDA REVIEW OF SYSTEMS: CONSTITUTIONAL: Denies acute: fever, diaphoresis, chills, generalized weakness. HEAD: Denies acute: headache, photophobia Eyes: Denies acute: Double vision, vision loss, eye pain, eye discharge. EARS: Denies acute: tinnitus, hearing loss, ear discharge, ear pain, THROAT: Denies acute: sore throat, swelling, difficulty swallowing , pain with swallowing, change in voice. NECK: Denies acute: neck pain, neck swelling, stiff neck. HEART: Denies acute : chest pain, palpitations, LUNGS: Denies acute: wheezing, hemoptysis ABDOMEN: Denies acute: abdominal pain, Nausea, Vomiting, diarrhea, melena , hematemesis, hematochezia SKIN: Denies acute: redness, EXTREMITIES: Denies acute: calf pain, numbness, tingling, weakness, Denies acute: Low back pain. Neuro: Denies acute: focal neurological deficit, motor or sensory focal neurological deficit, tremors, seizure like activity, confusion, dizziness, change in mental status, loss of bowel or bladder function, cauda equina like symptoms. : Denies acute: dysuria, hematuria, flank pain, increase in urinary frequency. PSYCH: Denies acute: hallucination, suicidal ideation, homicidal ideation. PHYSICAL EXAM: General: no acute distress, awake and alert. Head: normocephalic, atraumatic. Neck: supple, trachea is midline, no swelling. Throat: Normal phonation. Eyes:, no erythema, no purulent discharge, no proptosis, no icterus. Heart: regular rate, regular rhythm, no significant murmur appreciated. Lungs: no apparent respiratory distress, Able to speak in full sentences. No wheezing, no rhonchi, no crackles. No stridors Clear to auscultation bilaterally. Abdomen: non tender to palpation, non distended, soft, no guarding, no rebound, + bowel sounds. Obese Neuro: Awake, Alert, oriented to name, self, situation, follows commands GCS=15. Speech is normal. Skin: no petechia, no purpura, no cyanosis, non-pale, not jaundice. Nonspecific minimal chronic rash on bilateral abdomen. Lower extremities: --trace bilateral - Pitting edema no deformity, no focal swelling, no calf TTP. Noted bilateral venous stasis Makes eye contact. moves all four extremities. Face: no apparent facial droop. Ambulating in the ED independently. ED COURSE: Chief Complaint: Extremity Swelling Time Seen by MD: 14:05 Primary Care Provider: DEMARCUS Reviewed notes: Nurses Notes, Medications, Allergies Information Source: Patient Mode of Arrival: Ambulatory Past Medical History PAST MEDICAL HISTORY: CHF, High Lipids, HTN Surgical History: Denies all surgeries Family History Family History: Reviewed,noncontributory to illness Social History Smoker: Non-Smoker Alcohol: Occasionally Drugs: Marijuana Lives In: Home Was a procedure done? Was a procedure done?: No Differential Dx Differential Diagnosis: Other (DDx include ACS, unstable angina, anxiety, PE, pneumothroax, neoplasm, cardiac ischemia, COPD, asthma, CHF, pleural effusion, tobacco abuse, pneumonia, hypoxia, hypercapnia, anemia., infection/sepsis., pulmonary edema. Asthma, Cardiac tamponade, infection.) X-Ray, Labs, Meds, VS Vital Signs Date Time Temp Pulse Resp B/P (MAP) Pulse Ox O2 Delivery O2 Flow Rate FiO2 01/14/25 17:14 98.1 66 17 142/68 (92) 94 98.1 01/14/25 14:53 104/68 01/14/25 14:46 68 17 104/68 (80) 92 01/14/25 14:46 17 92 Room Air* 0 21 01/14/25 13:51 72 01/14/25 13:45 99.0 72 18 129/69 (89) 96 Lab Test 01/14/25 17:42 01/14/25 15:49 01/14/25 14:24 Range/Units Troponin I High Sensitivity 11 11 12 </=54 ng/L White Blood Count 8.3 4.4-10.8 10^3/uL Red Blood Count 4.70 4.5-5.90 10^6/uL Hemoglobin 15.0 13.5-17.5 g/dL Hematocrit 42.9 41.0-53.0 % Mean Corpuscular Volume 91.3 80.0-100.0 fL Mean Corpuscular Hemoglobin 31.8 28.0-32.0 pg Mean Corpuscular Hemoglobin Concent 34.9 32.0-36.0 g/dL Red Cell Distribution Width 14.8 H 11.8-14.3 % Platelet Count 303 140-450 10^3/uL Mean Platelet Volume 8.8 6.9-10.8 fL Neutrophils (%) (Auto) 58.9 37.0-80.0 % Lymphocytes (%) (Auto) 19.7 10.0-50.0 % Monocytes (%) (Auto) 12.0 0.0-12.0 % Eosinophils (%) (Auto) 7.5 H 0.0-7.0 % Basophils (%) (Auto) 1.9 0.0-2.0 % Neutrophils # (Auto) 4.9 1.6-8.6 10 ^3/uL Lymphocytes # (Auto) 1.6 0.4-5.4 10 ^3/uL Monocytes # (Auto) 1.0 0-1.3 10 ^3/uL Eosinophils # (Auto) 0.6 0-0.8 10 ^3/uL Basophils # (Auto) 0.2 0-0.2 10 ^3/uL Nucleated Red Blood Cells 0.0 % Sodium Level 141 136-145 mmol/L Potassium Level 3.0 L 3.5-5.1 mmol/L Chloride Level 101 98-107 mmol/L Carbon Dioxide Level 32 H 20-31 mmol/L Anion Gap 8 5-15 Blood Urea Nitrogen 23 9-23 mg/dL Creatinine 1.11 0.700-1.30 mg/dL Glomerular Filtration Rate Calc 69 >90 mL/min BUN/Creatinine Ratio 20.7 H 10.0-20.0 Serum Glucose 116 H 74-106 mg/dL Lactic Acid Level 1.0 0.4-2.0 mmol/L Calcium Level 10.1 8.7-10.4 mg/dL Magnesium Level 2.2 1.6-2.6 mg/dL Total Bilirubin 0.5 0.2-1.0 mg/dL Aspartate Amino Transferase (AST) 24 13-40 U/L Alanine Aminotransferase (ALT) 17 7-40 U/L Alkaline Phosphatase 64 46-116 U/L B-Type Natriuretic Peptide 62.56 0-100 pg/mL Total Protein 7.7 5.7-8.2 g/dL Albumin 4.9 H 3.2-4.8 g/dL Current Medications Medications (Trade) Dose Ordered Sig/Serge Route Start Time Stop Time Status Last Admin Methylprednisolone Sodium Succinate (Solu Medrol) 125 mg ONCE ONCE IV 01/14/25 14:15 01/14/25 14:16 DC 01/14/25 14:54 Furosemide (Lasix Injection) 20 mg ONCE ONCE IV 01/14/25 14:45 01/14/25 14:46 DC 01/14/25 14:53 Potassium Chloride (Klor-Con Tablet) 40 meq ONCE ONCE PO 01/14/25 16:45 01/14/25 16:47 DC 01/14/25 16:52 [place] [address] Ph: [phone] DIAGNOSTIC IMAGING Diagnostic Imaging Report : [id number] Signed PATIENT: PB WILSON ACCT: [id number] UNIT: [id number] : 1950 LOC: ER ROOM / BED: / AGE / SEX: 74 / M ADM STATUS: REG ER SERVICE 1411 ORDERING PHYSICIAN: NUSRAT MCGRAW DO PROCEDURE(s): CXRP - CHEST PORTABLE REASON: sob ORDER NUMBER(s): [id number], ACCESSION NUMBER(s): [id number] CHEST RADIOGRAPH Indication: sob Technique: Single frontal view of the chest was obtained COMPARISON: None FINDINGS: Lines and Tubes: None Lungs: Scarring both lung bases. Prominent right hilum most likely vascular in nature Pleura: No effusion. No pneumothorax. Cardiomediastinal contours: Unremarkable Bones: Unremarkable IMPRESSION: 1. No acute disease. ATED BY: PB ECHEVERRIA MD DICTATED DATE/TIME: 01/14/25 143 SIGNED BY: PB ECHEVERRIA MD SIGNED DATE/TIME: 01/14/25 1430 [place] [address] Ph: [phone] DIAGNOSTIC IMAGING Diagnostic Imaging Report : [id number] Signed PATIENT: PB WILSON ACCT: [id number] UNIT: [id number] : 1950 LOC: ER ROOM / BED: / AGE / SEX: 74 / M ADM STATUS: REG ER SERVICE 1411 ORDERING PHYSICIAN: NUSRAT MCGRAW DO PROCEDURE(s): BLDVT - BiLat Lower DVT REASON: swelling ORDER NUMBER(s): [id number], ACCESSION NUMBER(s): [id number] Bilateral lower extremity venous duplex Clinical History: swelling Comparison: None Technique: Duplex Doppler evaluation of the deep venous systems of both lower extremities from the common femoral veins to the popliteal veins including color Doppler and spectral/pulsed waveform analysis was performed. Findings: RIGHT SIDE: The common femoral vein demonstrates appropriate compressibility and waveform variability. There is compressibility/patency of the great saphenous vein at the proximal th igh. The femoral vein demonstrates appropriate compressibility and waveform variability. The deep femoral vein demonstrates appropriate compressibility and waveform variability. The popliteal vein demonstrates appropriate compressibility and waveform va riability. There is normal compressibility at the tibioperoneal trunk. LEFT SIDE: The common femoral vein demonstrates appropriate compressibility and waveform variability. There is compressibility/patency of the great saphenous vein at the proximal th igh. The femoral vein demonstrates appropriate compressibility and waveform variability. The deep femoral vein demonstrates appropriate compressibility and waveform variability. The popliteal vein demonstrates appropriate compressibility and waveform va riability. There is normal compressibility at the tibioperoneal trunk. Impression: 1. No right or left femoropopliteal venous thrombosis. ATED BY: PB DANGELO Jr., DO DICTATED DATE/TIME: 01/14/251531 SIGNED BY: PB DANGELO Jr., SIGNED DATE/TIME: 01/14/251531 Time of 1ST Reevaluation: 14:35 Reevaluation 1ST: Unchanged Time of 2ND Reevaluation: 18:04 (PATIENT REFUSED ABG. PATIENT IS BEING SENT HOME WITH DOSE OF STEROIDS FOR RASH.) Reevaluation 2ND: Unchanged Patient Education/Counseling: Diagnosis, Treatment Family Education/Counseling: Treatment, Other Comments Patient presented with the above HPI.---respiratory---workup was initiated. patient was found with the above mentioned diagnosis. the following medications were ordered: please refer to order lists of meds and tests obtained by myself Dr. Mcgraw. Patient ED course and VS have been stabilized. Patient has been reassessed in the ED and remained in a stable condition. Pertinent incidental findings were discussed with the patient and/or family. Patient/family voices understanding and is agreeable with plan. Patient has been observed in the ED adequate length of time to insure improvement/stability. Escalation of care considered: Consideration of escalation to observation or admission No findings to suggest anaphylactic reaction. Patient's rash is chronic. Patient was DISCHARGED home in a stable condition. All the reports of any imaging studies that were ordered by myself were reviewed by myself. Departure 1 Departure Time of Disposition: 18:02 Impression: Primary Impression: Dyspnea Additional Impression: Cough Disposition: 01 HOME / SELF CARE / HOMELESS Condition: Stable Additional Instructions: Additional discharge instructions: You MUST follow-up with your primary care/family doctor in 1 to 2 days. If you are unable to see your primary care/family doctor, please return to our emergency room for re-assessment and re-evaluation in 1 to 2 days. Return to the emergency room here in our facility or to the nearest ER [facility] if your symptoms change or worsen. CONSULTATIONS: you MUST Follow-up for consultation as soon as possible with: -pulmonology in 1-2 days. Please call for appointment You MUST call the consultants office yourself to make an appointment. You may need to arrange that through your insurance and/or your primary/family doctor. If you are unable to see the environmental remediation consultant in 1 to 2 days, you must return to our emergency room (or any other ER of your choice) for re-assessment and re- evaluation. Adequate fluid hydration. Please compliant with Lasix daily. e-Prescriptions Prednisone (Prednisone) 20 Mg Tab 20 MG PO DAILY for 5 Days, #5 TAB Prov: NUSRAT MCGRAW DO 01/14/25 Discharged With: Self Critical Care Note Critical Care Time?: No I personally scribed for NUSRAT MCGRAW DO ([email or web address]) on 01/14/25 at 14:16. Electronically submitted by Ammon Ace ([email or web address]). I personally scribed for NUSRAT MCGRAW DO ([email or web address]) on 01/14/25 at 15:50. Electronically submitted by Ammon Ace ([email or web address]). I personally scribed for NUSRAT MCGRAW DO ([email or web address]) on 01/14/25 at 18:05. Electronically submitted by Ammon Ace ([email or web address]). NUSRAT MCGRAW DO Jan 14, 2025 14:16
--- NOTE | 2025-01-14 14:33 | DVH ---
CHEST RADIOGRAPH Indication: sob Technique: Single frontal view of the chest was obtained COMPARISON: None FINDINGS: Lines and Tubes: None Lungs: Scarring both lung bases. Prominent right hilum most likely vascular in nature Pleura: No effusion. No pneumothorax. Cardiomediastinal contours: Unremarkable Bones: Unremarkable IMPRESSION: 1. No acute disease.
[2025-01-14 14:39] LABS: Basophils # (auto) 0.2 10 ^3/uL (0-0.2); Basophils % (auto) 1.9 % (0.0-2.0); Eosinophils # (auto) 0.6 10 ^3/uL (0-0.8); Eosinophils % (auto) 7.5 % (0.0-7.0); Hematocrit 42.9 % (41.0-53.0); Lymphocytes # (auto) 1.6 10 ^3/uL (0.4-5.4); Lymphocytes % (auto) 19.7 % (10.0-50.0); Mean Corpuscular Hemoglobin 31.8 pg (28.0-32.0); Mean Corpuscular Hgb Conc. 34.9 g/dL (32.0-36.0); Mean Corpuscular Volume 91.3 fL (80.0-100.0); Neutrophils # (auto) 4.9 10 ^3/uL (1.6-8.6); Neutrophils % (auto) 58.9 % (37.0-80.0); Platelet Count (auto) 303 10^3/uL (140-450); Red Cell Distribution Width 14.8 % (11.8-14.3); White Blood Cell 8.3 10^3/uL (4.4-10.8)
[2025-01-14 14:46] VITALS: RESP 17; O2SAT 92
[2025-01-14] MEDS: FUROSEMIDE 20 MG/2 ML VIAL IV ONE (14:53)
[2025-01-14] MEDS: methylPREDNISolone SOD SUCC 125 MG/2 ML VL IV ONE (14:54)
[2025-01-14 15:02] LABS: Alanine Aminotransferase 17 U/L (7-40); Alkaline Phosphatase 64 U/L (46-116); Anion Gap 8 (5-15); Aspartate Aminotransferase 24 U/L (13-40); BUN/Creatinine Ratio 20.7 (10.0-20.0); Calcium 10.1 mg/dL (8.7-10.4); Chloride 101 mmol/L (98-107); Magnesium 2.2 mg/dL (1.6-2.6); Sodium 141 mmol/L (136-145); Total Protein 7.7 g/dL (5.7-8.2)
[2025-01-14 15:03] LABS: Bilirubin, Total 0.5 mg/dL (0.2-1.0)
[2025-01-14 15:20] LABS: Albumin 4.9 g/dL (3.2-4.8); Blood Urea Nitrogen 23 mg/dL (9-23); Carbon Dioxide 32 mmol/L (20-31); Glucose 116 mg/dL (74-106)
--- NOTE | 2025-01-14 15:35 | DVH ---
Bilateral lower extremity venous duplex Clinical History: swelling Comparison: None Technique: Duplex Doppler evaluation of the deep venous systems of both lower extremities from the common femora l veins to the popliteal veins including color Doppler and spectral/pulsed waveform analysis was perf ormed. Findings: RIGHT SIDE: The common femoral vein demonstrates appropriate compressibility and waveform variability. There is compressibility/patency of the great saphenous vein at the proximal thigh. The femoral vein demonstrates appropriate compressibility and waveform variability. The deep femoral vein demonstrates appropriate compressibility and waveform variability. The popliteal vein demonstrates appropriate compressibility and waveform variability. There is normal compressibility at the tibioperoneal trunk. LEFT SIDE: The common femoral vein demonstrates appropriate compressibility and waveform variability. There is compressibility/patency of the great saphenous vein at the proximal thigh. The femoral vein demonstrates appropriate compressibility and waveform variability. The deep femoral vein demonstrates appropriate compressibility and waveform variability. The popliteal vein demonstrates appropriate compressibility and waveform variability. There is normal compressibility at the tibioperoneal trunk. Impression: 1. No right or left femoropopliteal venous thrombosis.
[2025-01-14] MEDS: POTASSIUM CHL 20 Meq TABLET PO ONE (16:52)
[2025-01-14 17:14] VITALS: BP 142/68; PULSE 66; RESP 17; TEMP 98.1; O2SAT 94
[2025-01-14] MEDS ORDERED: PRED20TA2 PO (18:04)
--- NOTE | 2025-01-15 04:37 | ECG ---
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
== END 2025-01-14 18:23 | disposition home or self-care (01) ==
LOC: ER 13:29
DX: R06.09 Other forms of dyspnea (principal); R05.9 Cough, unspecified; F12.90 Cannabis use, unspecified, uncomplicated; I11.0 Hypertensive heart disease with heart failure; I50.89 Other heart failure; Z88.8 Allergy status to other drugs, medicaments and biological substances; Z88.6 Allergy status to analgesic agent
CPT/HCPCS: 36415; 36600; 71045; 80053; 82805; 83605; 83735; 83880; 84484; 85025; 93005; 93970; 96374; 96375; 99285; J1940; J2919

== ENCOUNTER 2025-02-01 07:31 | Emergency (ER) | payer OTHER ==
[~2025-02-01] VITALS: Ht 188 cm; Wt 128.9 kg
[~2025-02-01 07:31] MED LIST changes: +PRED20TA2 PO
[2025-02-01] MEDS ORDERED: PRED10TA PO (08:19)
[2025-02-01] MEDS ORDERED: LEVO500T91 PO (08:19)
[2025-02-01] MEDS ORDERED: HYD1TP TOP (08:19)
--- NOTE | 2025-02-01 08:19 | ED.PDOC ---
History of Present Illness HPI Comments 74-year-old male came to the ER because he has been having rash for more than six months on his bilateral lower extremity in his abdomen is back. He was given some cream which did not help him. He has not seen a provider for many months for his condition. He has a history of hypotension CHF. Patient denies chest pain shortness a breath abdominal pain nausea vomiting. Vitals signs stable on arrival. Denies any other symptoms. Chief Complaint: Lower Extremity Time Seen by MD: 07:37 Primary Care Provider: DEMARCUS Reviewed Notes: Nurses Notes, Medications, Allergies Allergies: Coded Allergies: NO KNOWN ALLERGIES (Unverified , 01/22/14) Home Meds Active Scripts Prednisone (Prednisone) 20 Mg Tab, 20 MG PO DAILY for 5 Days, #5 TAB Prov:NUSRAT MCGRAW DO 01/14/25 Bacitracin-Polymyxin B (HM DOUBLE ANTIBIOTIC) Oin, 1 BOTTLE EX BID for 5 Days, #1 OIN Prov:CHRISTINA MICHELLE MD 05/26/23 Ciprofloxacin Hcl (Cipro) 500 Mg Tab, 1 TAB PO BID, #14 TAB Prov:RODOLFO ANTHONY MD 05/25/23 Albuterol Sulfate (VENTOLIN MDI) 90 Mcg Ih, 90 MCG IN Q4HPRN PRN, #2 INHALER Prov:ELIE CARTER MD 12/29/17 Reported Medications Lisinopril & Hydrochlorothiazi (Lisinopril/Hydrochlorothi) 1 Tab Tab, 1 TAB PO DAILY, #30 TAB 5 Refills 07/30/18 Hydrocodone-Acetaminophen ([place] 5/325MG) 1 Tab Tb, 1 TAB PO TID PRN, #5 TAB 11/23/16 Paroxetine (PAXIL TABLET) 20 Mg Tb, #30 11/22/16 Furosemide (Furosemide) 40 Mg Tab, #60 11/22/16 Diazepam (Diazepam) 10 Mg Tab, #60 11/22/16 Amlodipine Besylate (Amlodipine Besylate) 10 Mg Tab, #90 11/22/16 Potassium Chloride (Klor-Con 8) 8 Meq Tab, #60 11/22/16 Carvedilol (Carvedilol) 3.125 Mg Tab, #60 11/22/16 Information Source: Patient Mode of Arrival: Ambulatory Severity: Mild Timing: Months Duration: Since onset Past Medical History PAST MEDICAL HISTORY: CHF, High Lipids, HTN Surgical History: Denies all surgeries Family History Family History: Reviewed,noncontributory to illness Social History Smoker: Non-Smoker Alcohol: Occasionally Drugs: Marijuana Lives In: Home Constitutional: denies: chills, diaphoresis, fatigue, fever, malaise, sweats, weakness, others EENTM: denies: blurred vision, double vision, ear bleeding, ear discharge, ear drainage, ear pain, ear ringing, eye pain, eye redness, hearing loss, mouth pain, mouth swelling, nasal discharge, nose bleeding, nose congestion, nose pain, photophobia, tearing, throat pain, throat swelling, voice changes, others Respiratory: denies: cough, hemoptysis, orthopnea, SOB at rest, shortness of breath, SOB with excertion, stridor, wheezing, others Cardiovascular: denies: chest pain, dizzy spells, diaphoresis, Dyspnea on exertion, edema, irregular heart beat, left arm pain, lightheadedness, palpitations, PND, syncope, others Gastrointestinal: denies: abdomen distended, abdominal pain, blood streaked bowels, constipated, diarrhea, dysphagia, difficulty swallowing, hematemesis, melena, nausea, poor appetite, poor fluid intake, rectal bleeding, rectal pain, vomiting, others Genitourinary: denies: burning, dysuria, flank pain, frequency, hematuria, incontinence, penile discharge, penile sore, pain, testicle pain, testicle swelling, urgency, others Neurological: denies: dizziness, fainting, headache, left sided numbness, left sided weakness, numbness, paresthesia, pre-existing deficit, right sided numbness, right sided weakness, seizure, speech problems, tingling, tremors, weakness, others Musculoskeletal: denies: back pain, gout, joint pain, joint swelling, muscle pain, muscle stiffness, neck pain, others Integumetry: reports: rash (Bilateral lower extremity abdomen back); denies: bruises, change in color, change in hair/nails, dryness, laceration, lesions, lumps, wounds, others Allergic/Immunocompromised: denies: Difficulty Healing, Frequent Infections, Hives, Itching, others Hematologic/Lymphatic: denies: anemia, blood clots, easy bleeding, easy bruising, swollen glands, others Endocrine: denies: excessive hunger, excessive sweating, excessive thirst, excessive urination, flushing, intolerance to cold, intolerance to heat, unexplained weight gain, unexplained weight loss, others Psychiatric: denies: anxiety, bipolar disorder, depression, hopeless, panic disorder, schizophrenia, sleepless, suicidal, others Physical Exam General Appearance: Moderate Distress HEENT: Normal ENT Inspection, Pharynx Normal, TMs Normal Neck: Full Range of Motion, Non-Tender, Normal, Normal Inspection Respiratory: Chest Non-Tender, Lungs Clear, No Accessory Muscle Use, No Respiratory Distress, Normal Breath Sounds Cardiovascular: No Edema, No JVD, No Murmur, No Gallop, Normal Peripheral Pulses, Regular Rate/Rhythm Breast Exam: Deferred Gastrointestinal: No Organomegaly, Non Tender, No Pulsatile Mass, Normal Bowel Sounds, Soft Genitalia: Deferred Pelvic: Deferred Rectal: Deferred Extremities: No calf tenderness, Normal capillary refill, Normal inspection, Normal range of motion, Non-tender, No pedal edema Musculoskeletal : Apperance: Normal Neurologic: Alert, superintendent drilling II-XII nml as Tested, No Motor Deficits, Normal Affect, Normal Mood, No Sensory Deficits Cerebellar Function: Normal Reflexes: Normal Skin: Rash (Erythematous bilateral lower extremity abdomen bag) Peripheral Pulses: 3+ Radial (R), 3+ Radial (L) Lymphatic: No Adenopathy Was a procedure done? Was a procedure done?: No Differential Dx Considerations may include: Eczema Allergic reaction X-Ray, Labs, Meds, VS Vital Signs Date Time Temp Pulse Resp B/P (MAP) Pulse Ox O2 Delivery O2 Flow Rate FiO2 02/01/25 08:02 98.8 66 16 119/70 (86) 96 98.8 Patient alert. Came in because of rash. Has been having this rash for many months. Vitals stable. On examination eczema bilateral lower extremity small area on the abdomen back. Reviewed his history. Possibly combination of CHF eczema. Was given prescription of prednisone steroid cream Levaquin antibiotic. Explained to the patient. Was told to follow up with his primary care physician. Was told to come back if there is any problem. Time of 1ST Reevaluation: 08:14 Reevaluation 1ST: Unchanged Patient Education/Counseling: Diagnosis, Treatment, Prognosis, Need For Follow Up Family Education/Counseling: No Family Present Departure 1 Departure Time of Disposition: 08:16 Impression: Primary Impression: CHF (congestive heart failure) Qualified Codes: I50.43 - Acute on chronic combined systolic (congestive) and diastolic (congestive) heart failure Additional Impressions: Eczema Qualified Codes: L30.9 - Dermatitis, unspecified Cellulitis Qualified Codes: L03.119 - Cellulitis of unspecified part of limb Disposition: 01 HOME / SELF CARE / HOMELESS Condition: Good e-Prescriptions Hydrocortone (Hydrocortisone 1%) 1 Applic Ap 1 APPLIC TOP BID for 10 Days, #5 GRAMS Prov: JOSE NARANJO MD 02/01/25 Prednisone (Prednisone) 10 Mg Tab 10 MG PO DAILY for 7 Days, #7 MG Prov: JOSE NARANJO MD 02/01/25 Levofloxacin Hemihydrate (LEVOFLOXACIN) 500 Mg Tab 1 TAB PO DAILY for 7 Days, #7 TAB Prov: JOSE NARANJO MD 02/01/25 Discharged With: Self Critical Care Note Critical Care Time?: No Stability Stability form required: No Heart Score Heart Score: Heart Score Response (Comments) Value History N/A 0 EKG N/A 0 Age N/A 0 Risk Factors N/A 0 Troponin N/A 0 Total 0 JOSE NARANJO MD Feb 01, 2025 08:19
[2025-02-01 08:38] VITALS: BP 122/59; PULSE 67; RESP 20; TEMP 98; O2SAT 93
== END 2025-02-01 08:42 | disposition home or self-care (01) ==
LOC: ER 07:44
DX: L30.9 Dermatitis, unspecified (principal); L03.115 Cellulitis of right lower limb; L03.116 Cellulitis of left lower limb; I11.0 Hypertensive heart disease with heart failure; I50.9 Heart failure, unspecified; E78.5 Hyperlipidemia, unspecified; Z79.2 Long term (current) use of antibiotics; Z79.52 Long term (current) use of systemic steroids; Z79.899 Other long term (current) drug therapy

== ENCOUNTER 2025-02-10 14:19 | Inpatient (IN) | payer OTHER, MEDICAID ==
[~2025-02-10] VITALS: Ht 188 cm; Wt 135.2 kg
[~2025-02-10 14:19] MED LIST changes: +HYD1TP TOP; +LEVO500T91 PO; +PRED10TA PO
--- NOTE | 2025-02-10 14:49 | ED.PDOC ---
History of Present Illness(SKN HPI Comments 74y F who presents to the ED for chief complain to lower extremity swelling. Pt states he has history of CHF and states he has been having bilateral lower extremity swelling. Pt states he started to notice bilateral redness and erythema with associated rash to the torso and arms for the past [address] [facility] was [facility] week prior and was evaluated for similar complaint and states he was negative for blood clots but states he was given antibiotics and discharged. Pt states he has been having associated chills and states he started to feel a fever last night but otherwise denies shortness of breath, chest pain, cough, nasuea, vomiting, dysuria or hematuria. Pt otherwise denies any other symptoms at this time. Time Seen by MD: 14:46 Primary Care Provider: DEMARCUS History of Present Illness: Nurses Notes, Medications, Allergies Allergies: Coded Allergies: NO KNOWN ALLERGIES (Unverified , 01/22/14) Home Meds Active Scripts Hydrocortone (Hydrocortisone 1%) 1 Applic Ap, 1 APPLIC TOP BID for 10 Days, #5 GRAMS Prov:JOSE NARANJO MD 02/01/25 Prednisone (Prednisone) 10 Mg Tab, 10 MG PO DAILY for 7 Days, #7 MG Prov:JOSE NARANJO MD 02/01/25 Levofloxacin Hemihydrate (LEVOFLOXACIN) 500 Mg Tab, 1 TAB PO DAILY for 7 Days, #7 TAB Prov:JOSE NARANJO MD 02/01/25 Prednisone (Prednisone) 20 Mg Tab, 20 MG PO DAILY for 5 Days, #5 TAB Prov:NUSRAT MCGRAW DO 01/14/25 Bacitracin-Polymyxin B (HM DOUBLE ANTIBIOTIC) Oin, 1 BOTTLE EX BID for 5 Days, #1 OIN Prov:CHRISTINA MICHELLE MD 05/26/23 Ciprofloxacin Hcl (Cipro) 500 Mg Tab, 1 TAB PO BID, #14 TAB Prov:RODOLFO ANTHONY MD 05/25/23 Albuterol Sulfate (VENTOLIN MDI) 90 Mcg Ih, 90 MCG IN Q4HPRN PRN, #2 INHALER Prov:ELIE CARTER MD 12/29/17 Reported Medications Lisinopril & Hydrochlorothiazi (Lisinopril/Hydrochlorothi) 1 Tab Tab, 1 TAB PO DAILY, #30 TAB 5 Refills 07/30/18 Hydrocodone-Acetaminophen ([place] 5/325MG) 1 Tab Tb, 1 TAB PO TID PRN, #5 TAB 11/23/16 Paroxetine (PAXIL TABLET) 20 Mg Tb, #30 11/22/16 Furosemide (Furosemide) 40 Mg Tab, #60 11/22/16 Diazepam (Diazepam) 10 Mg Tab, #60 11/22/16 Amlodipine Besylate (Amlodipine Besylate) 10 Mg Tab, #90 11/22/16 Potassium Chloride (Klor-Con 8) 8 Meq Tab, #60 11/22/16 Carvedilol (Carvedilol) 3.125 Mg Tab, #60 11/22/16 Information Source: Patient Mode of Arrival: Ambulatory Brought in by: self Severity: Moderate Timing: Weeks Duration: Since onset Prehospital treatment: None Location: Chest, Foot, Leg Mechanism: Spontaneous Onset Developed: Rash Retained Foreign Body: No Immunization Status of Animal: NA Tetanus: Unknown History of: None Associated Signs and Symptoms: Fever, Chills, Redness, Swelling Past Medical History PAST MEDICAL HISTORY: CHF, High Lipids, HTN Surgical History: Denies all surgeries Family History Family History: Reviewed,noncontributory to illness Social History Smoker: Non-Smoker Alcohol: Occasionally Drugs: Marijuana Lives In: Home Constitutional: reports: chills, fever; denies: diaphoresis, fatigue, malaise, sweats, weakness, others EENTM: denies: blurred vision, double vision, ear bleeding, ear discharge, ear drainage, ear pain, ear ringing, eye pain, eye redness, hearing loss, mouth pain, mouth swelling, nasal discharge, nose bleeding, nose congestion, nose pain, photophobia, tearing, throat pain, throat swelling, voice changes, others Respiratory: denies: cough, hemoptysis, orthopnea, SOB at rest, shortness of breath, SOB with excertion, stridor, wheezing, others Cardiovascular: denies: chest pain, dizzy spells, diaphoresis, Dyspnea on exertion, edema, irregular heart beat, left arm pain, lightheadedness, palp itations, PND, syncope, others Gastrointestinal: denies: abdomen distended, abdominal pain, blood streaked bowels, constipated, diarrhea, dysphagia, difficulty swallowing, hematemesis, melena, nausea, poor appetite, poor fluid intake, rectal bleeding, rectal pain, vomiting, others Genitourinary: denies: burning, dysuria, flank pain, frequency, hematuria, incontinence, penile discharge, penile sore, pain, testicle pain, testicle swelling, urgency, others Neurological: denies: dizziness, fainting, headache, left sided numbness, left sided weakness, numbness, paresthesia, pre-existing deficit, right sided numbness, right sided weakness, seizure, speech problems, tingling, tremors, weakness, others Musculoskeletal: denies: back pain, gout, joint pain, joint swelling, muscle pain, muscle stiffness, neck pain, others Integumetry: reports: change in color (b/l lower extremity); denies: bruises, change in hair/nails, dryness, laceration, lesions, lumps, rash, wounds, others Allergic/Immunocompromised: denies: Difficulty Healing, Frequent Infections, Hives, Itching, others Hematologic/Lymphatic: denies: anemia, blood clots, easy bleeding, easy bruising, swollen glands, others Endocrine: denies: excessive hunger, excessive sweating, excessive thirst, excessive urination, flushing, intolerance to cold, intolerance to heat, unexp lained weight gain, unexplained weight loss, others Psychiatric: denies: anxiety, bipolar disorder, depression, hopeless, panic disorder, schizophrenia, sleepless, suicidal, others All Other Systems: Reviewed and Negative Physical Exam General Appearance: Moderate Distress HEENT: Normal ENT Inspection, Pharynx Normal, TMs Normal Neck: Full Range of Motion, Non-Tender, Normal, Normal Inspection Respiratory: Chest Non-Tender, Lungs Clear, No Accessory Muscle Use, No Respiratory Distress, Normal Breath Sounds Cardiovascular: No Edema, No JVD, No Murmur, No Gallop, Normal Peripheral Pulses, Regular Rate/Rhythm Breast Exam: Deferred Gastrointestinal: No Organomegaly, Non Tender, No Pulsatile Mass, Normal Bowel Sounds, Soft Genitalia: Deferred Pelvic: Deferred Rectal: Deferred Extremities: Inflammation, Normal capillary refill, Pedal edema Musculoskeletal : Apperance: Normal 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 Was a procedure done?: No Differential Diagnosis (INTG) Differential Diagnosis: Puncture Wound Abscess: Abscess, Bacteremia, Cellulitis X-Ray, Labs, Meds, VS Vital Signs Date Time Temp Pulse Resp B/P (MAP) Pulse Ox O2 Delivery O2 Flow Rate FiO2 02/10/25 17:17 98.7 67 16 123/64 (83) 95 98.7 02/10/25 16:18 Room Air* 0 21 02/10/25 15:28 70 18 95 Room Air 02/10/25 15:28 98.9 70 18 114/55 (74) 95 98.9 02/10/25 14:52 97.0 73 24 130/60 (83) 95 97.0 Lab Test 02/10/25 15:11 Range/Units White Blood Count 8.8 4.4-10.8 10^3/uL Red Blood Count 4.77 4.5-5.90 10^6/uL Hemoglobin 14.7 13.5-17.5 g/dL Hematocrit 43.8 41.0-53.0 % Mean Corpuscular Volume 91.9 80.0-100.0 fL Mean Corpuscular Hemoglobin 30.9 28.0-32.0 pg Mean Corpuscular Hemoglobin Concent 33.6 32.0-36.0 g/dL Red Cell Distribution Width 14.7 H 11.8-14.3 % Platelet Count 273 140-450 10^3/uL Mean Platelet Volume 8.5 6.9-10.8 fL Neutrophils (%) (Auto) 65.7 37.0-80.0 % Lymphocytes (%) (Auto) 16.2 10.0-50.0 % Monocytes (%) (Auto) 11.7 0.0-12.0 % Eosinophils (%) (Auto) 5.8 0.0-7.0 % Basophils (%) (Auto) 0.6 0.0-2.0 % Neutrophils # (Auto) 5.8 1.6-8.6 10 ^3/uL Lymphocytes # (Auto) 1.4 0.4-5.4 10 ^3/uL Monocytes # (Auto) 1.0 0-1.3 10 ^3/uL Eosinophils # (Auto) 0.5 0-0.8 10 ^3/uL Basophils # (Auto) 0 0-0.2 10 ^3/uL Nucleated Red Blood Cells 0.0 % Sodium Level 140 136-145 mmol/L Potassium Level 3.6 3.5-5.1 mmol/L Chloride Level 103 98-107 mmol/L Carbon Dioxide Level 28 20-31 mmol/L Anion Gap 9 5-15 Blood Urea Nitrogen 23 9-23 mg/dL Creatinine 1.04 0.700-1.30 mg/dL Glomerular Filtration Rate Calc 74 >90 mL/min BUN/Creatinine Ratio 22.1 H 10.0-20.0 Serum Glucose 106 74-106 mg/dL Calcium Level 9.7 8.7-10.4 mg/dL B-Type Natriuretic Peptide 52.02 0-100 pg/mL Current Medications Medications (Trade) Dose Ordered Sig/Serge Route Start Time Stop Time Status Last Admin Clindamycin Phosphate 50 ml @ 50 mls/hr ONCE ONCE IV 02/10/25 14:45 02/10/25 15:44 DC 02/10/25 16:16 Procedure: US BiLat Lower DVT Impression: No sonographic evidence of bilateral lower extremity deep venous thrombosis. XY CHEST TWO VIEWS ROUTINE IMPRESSION: 1. Infiltrate or atelectasis left base. Worse than 01/14/2025. At this time the patient was given clindamycin IV piggyback. The patient's CBC and chemistry panel are within normal limits The patient was being admitted at this time We discussed the findings with the patient and he is in agreement with the management. Images Reviewed?: Images reviewed and evaluated by me Time of 1ST Reevaluation: 15:15 Reevaluation 1ST: Unchanged Patient Education/Counseling: Diagnosis, Treatment, Prognosis Family Education/Counseling: No Family Present Additional Information -Reviewed patient's previous visit(s): - The following tests were ordered, and results were reviewed by me:cbc, bnp, bmp, chest x-ray, bilat lower DVT, - Additional information was gathered from interviewing the following independent Historian: patient - I reviewed and agreed with the following test results read by other provider: radiologist - I discussed treatments and results with medical personnel and: patient Comprehensive systems review obtained and negative except for what is stated in the HPI. Departure 1 Departure Time of Disposition: 18:27 Impression: Primary Impression: Bilateral lower leg cellulitis Disposition: ADMITTED INPATIENT Admit to: Med Surg Condition: Fair Critical Care Note Critical Care Time?: No Stability Stability form required: Yes Unstable for transfer: ED Physician Assesment (Clinical assesment) Heart Score Heart Score: Heart Score Response (Comments) Value History N/A 0 EKG N/A 0 Age N/A 0 Risk Factors N/A 0 Troponin N/A 0 Total 0 I personally scribed for RODOLFO ANTHONY MD ([email or web address]) on 02/10/25 at 14:49. Electronically submitted by Mary Worthington ([email or web address]). I personally scribed for RODOLFO ANTHONY MD ([email or web address]) on 02/10/25 at 16:30. Electronically submitted by Mary Worthington ([email or web address]). RODOLFO ANTHONY MD Feb 10, 2025 14:49
--- NOTE | 2025-02-10 15:10 | DVH ---
XY CHEST TWO VIEWS ROUTINE CLINICAL HISTORY: sob COMPARISON: CHEST TWO VIEWS ROUTINE on DOS: 07/22/19 TECHNIQUE: Frontal and lateral view of the chest was obtained FINDINGS: Lines and Tubes: None Lungs: Increasing bronchovascular markings in the left base may represent infiltrate or atelectasis. Pleura: No effusion. No pneumothorax. Cardiomediastinal contours: Unremarkable Bones: No acute osseous abnormality. IMPRESSION: 1. Infiltrate or atelectasis left base. Worse than 01/14/2025.
[2025-02-10 15:22] LABS: Basophils # (auto) 0 10 ^3/uL (0-0.2); Basophils % (auto) 0.6 % (0.0-2.0); Eosinophils # (auto) 0.5 10 ^3/uL (0-0.8); Eosinophils % (auto) 5.8 % (0.0-7.0); Hematocrit 43.8 % (41.0-53.0); Hemoglobin 14.7 g/dL (13.5-17.5); Lymphocytes # (auto) 1.4 10 ^3/uL (0.4-5.4); Lymphocytes % (auto) 16.2 % (10.0-50.0); Mean Corpuscular Hemoglobin 30.9 pg (28.0-32.0); Mean Corpuscular Hgb Conc. 33.6 g/dL (32.0-36.0); Mean Corpuscular Volume 91.9 fL (80.0-100.0); Monocytes % (auto) 11.7 % (0.0-12.0); Neutrophils # (auto) 5.8 10 ^3/uL (1.6-8.6); Neutrophils % (auto) 65.7 % (37.0-80.0); Platelet Count (auto) 273 10^3/uL (140-450); Red Blood Cells 4.77 10^6/uL (4.5-5.90); Red Cell Distribution Width 14.7 % (11.8-14.3); White Blood Cell 8.8 10^3/uL (4.4-10.8)
[2025-02-10 15:33] LABS: Chloride 103 mmol/L (98-107); Potassium 3.6 mmol/L (3.5-5.1); Sodium 140 mmol/L (136-145)
[2025-02-10 15:34] LABS: Anion Gap 9 (5-15); Calcium 9.7 mg/dL (8.7-10.4); Carbon Dioxide 28 mmol/L (20-31)
[2025-02-10 15:39] LABS: BUN/Creatinine Ratio 22.1 (10.0-20.0); Blood Urea Nitrogen 23 mg/dL (9-23); Glucose 106 mg/dL (74-106)
[2025-02-10] MEDS: CLINDAMYCIN 600MG IV 50 ML IV ONE (16:16)
--- NOTE | 2025-02-10 16:24 | DVH ---
Procedure: US BiLat Lower DVT Study Date and Requested Time: 02/10/2025 03:25 PM History: Leg swelling with redness Comparison: US BILAT LOWER DVT on DOS: 01/14/25 Technique: Multiple high resolution blackmon-scale images with and without compression obtained of the bi lateral lower extremity veins, including the common femoral vein, deep femoral vein, proximal mid and distal superficial femoral vein, and popliteal vein. Additional limited images of the greater saphen ous vein also obtained. Augmentation performed as indicated. Color and spectral doppler flow images o btained as indicated. Findings: No visible intraluminal venous thrombus. No evidence of incompressibility or abnormal color or spectr al Doppler flow visualized in the bilateral lower extremity veins including, the common femoral vein, deep femoral vein, proximal mid and distal superficial femoral vein, and popliteal vein. Greater sap henous vein grossly unremarkable. Impression: No sonographic evidence of bilateral lower extremity deep venous thrombosis.
[2025-02-10] MEDS ORDERED: NITROGLYCERIN 0.4 MG SL TAB SL PRN (17:30)
[2025-02-10] MEDS ORDERED: MORPHINE SULFATE INJ 2 MG/ml SYRG IV PRN (17:30)
[2025-02-10] MEDS: BUMETANIDE 1mg/4ml VIAL (0.25mg/ml) IV SCH (20:03)
[2025-02-10] MEDS: POTASSIUM CHL 20 Meq TABLET PO ONE (20:03)
[2025-02-10] MEDS: POTASSIUM CHL 10 Meq TABLET PO SCH (20:04)
[2025-02-10 23:16] VITALS: BP 137/71; PULSE 63; RESP 18; TEMP 97.4; O2SAT 97
[2025-02-10] MEDS: diphenhdrAMINE HCL 50 MG/1 ML VL IV PRN (23:54)
[2025-02-11] VITALS (8 sets, daily range): BP systolic 119–146; BP diastolic 60–79; PULSE 65–71; RESP 18–20; TEMP 97.9–98.7; O2SAT 20–96
--- NOTE | 2025-02-11 02:55 | DVHHP2 ---
LIUS E XAVIER FLORAL SPECIALIST 02/11/25 0255: History of Present Illness Reason for Visit: Swelling and redness to BLE History of Present Illness 74-year-old male with past medical history of CHF, hypertension, hyperlipidemia presents with complaints of bilateral lower extremity swelling and redness x1 month. Patient endorsed he has previously been treated with oral antibiotics. Also endorses generalized rash throughout his torso and back states he was tr eated for scabies however rash continues. Patient is concerned because redness on the right lower extremities traveling up behind the kneecap. States it is normal for the redness and swelling to and midway at the calf. Patient endorses he is compliant with his medications. At this time there are no complaints of fevers, chills, shortness of breath, chest pain, palpitations, nausea, vomiting, abdominal pain Cardiovascular: CHF, HTN, hyperipidemia Pulmonary: COPD Smoke: No ALCOHOL: occassional Drugs: None Lives: with Family Review of Systems Constitutional: No: Fever, Chills, Sweats, Weakness, Malaise, Other Eyes: No: Pain, Vision change, Conjunctivae inflammation, Eyelid inflammation, Other, Redness ENT: No: Ear pain, Ear discharge, Nose pain, Nose discharge, Nose congestion, Mouth pain, Mouth swelling, Throat pain, Throat swelling, Other Respiratory: No: Cough, Dry, Shortness of breath, SOB with excertion, Wheezing, Hemoptysis, Pleuritic Pain, Sputum, Wheezing, Other Cardiovascular: Edema; No: Chest Pain, Palpitations, Orthopnea, Paroxysmal Noc. Dyspnea, Lt Headedness, Other Gastrointestinal: No: Nausea, Vomiting, Abdominal Pain, Diarrhea, Constipation, Melena, Hematochezia, Other Genitourinary: No Dysuria, No Frequency, No Incontinence, No Hematuria, No Retention, No Other Musculoskeletal: leg pain; No: other, neck pain, shoulder pain, arm pain, back pain, hand pain, foot pain Skin: Other (redness and swelling to BLE) Allergies: Coded Allergies: NO KNOWN ALLERGIES (Unverified , 01/22/14) Medications Current Medications Medications Dose Ordered Sig/Serge Route Start Time Stop Time Status Last Admin Dose Admin Nitroglycerin 0.4 mg Q5MINP PRN SL 02/10/25 17:30 Morphine Sulfate 2 mg Q30M PRN IV 02/10/25 17:30 Ceftriaxone Sodium 50 ml @ 100 mls/hr DAILY@09 IV 02/11/25 09:00 Bumetanide 1 mg BIDD IV 02/10/25 18:00 02/10/25 20:03 1 MG Potassium Chloride 10 meq BID PO 02/10/25 22:00 Acetaminophen/ Hydrocodone Bitart 1 tab Q4HPRN PRN PO 02/10/25 17:30 Enoxaparin Sodium 40 mg DAILY SC 02/11/25 10:00 Diphenhydramine HCl 25 mg Q6HP PRN IV 02/10/25 23:30 02/10/25 23:54 25 MG Exam Vital Signs Vital Signs Date Time Temp Pulse Resp B/P (MAP) Pulse Ox O2 Delivery O2 Flow Rate FiO2 02/11/25 01:00 97.9 71 20 119/62 (81) 95 97.9 02/10/25 23:16 Room Air* 0 21 General Appearance: Alert, Oriented X3, Cooperative, mild distress HEENT: Atraumatic, PERRLA, EOMI Respiratory: Clear to auscultation, Normal air movement Cardiovascular: Regular rate, Normal S1, Normal S2 Abdominal: Normal bowel sounds, Soft, No tenderness Extremities: No clubbing, No cyanosis, Other (BLE edematous. erythema to RLE traveling towards back of knee) Labs/Xrays Labs Test 02/10/25 15:11 Range/Units White Blood Count 8.8 4.4-10.8 10^3/uL Red Blood Count 4.77 4.5-5.90 10^6/uL Hemoglobin 14.7 13.5-17.5 g/dL Hematocrit 43.8 41.0-53.0 % Mean Corpuscular Volume 91.9 80.0-100.0 fL Mean Corpuscular Hemoglobin 30.9 28.0-32.0 pg Mean Corpuscular Hemoglobin Concent 33.6 32.0-36.0 g/dL Red Cell Distribution Width 14.7 H 11.8-14.3 % Platelet Count 273 140-450 10^3/uL Mean Platelet Volume 8.5 6.9-10.8 fL Neutrophils (%) (Auto) 65.7 37.0-80.0 % Lymphocytes (%) (Auto) 16.2 10.0-50.0 % Monocytes (%) (Auto) 11.7 0.0-12.0 % Eosinophils (%) (Auto) 5.8 0.0-7.0 % Basophils (%) (Auto) 0.6 0.0-2.0 % Neutrophils # (Auto) 5.8 1.6-8.6 10 ^3/uL Lymphocytes # (Auto) 1.4 0.4-5.4 10 ^3/uL Monocytes # (Auto) 1.0 0-1.3 10 ^3/uL Eosinophils # (Auto) 0.5 0-0.8 10 ^3/uL Basophils # (Auto) 0 0-0.2 10 ^3/uL Nucleated Red Blood Cells 0.0 % Sodium Level 140 136-145 mmol/L Potassium Level 3.6 3.5-5.1 mmol/L Chloride Level 103 98-107 mmol/L Carbon Dioxide Level 28 20-31 mmol/L Anion Gap 9 5-15 Blood Urea Nitrogen 23 9-23 mg/dL Creatinine 1.04 0.700-1.30 mg/dL Glomerular Filtration Rate Calc 74 >90 mL/min BUN/Creatinine Ratio 22.1 H 10.0-20.0 Serum Glucose 106 74-106 mg/dL Calcium Level 9.7 8.7-10.4 mg/dL B-Type Natriuretic Peptide 52.02 0-100 pg/mL Assessment/Plan Assessment/Plan Celulitis BLE Generalized rash CHF not in exacerbation Hypertension Plan Admit telemetry Consult ID wound care consult IV ABX Continue home medications GI PPX protonix / dvt ppx lovenox Plan discussed with: Patient My Orders Orders - LUIS E XAVIER NP Procedure Category Date Status Time Diphenhdramine PHA 02/10/25 In Process Injection (Benadryl 23:30 Date of Service: Feb 11, 2025 Billing Provider: ELIE CARTER MD Common Visit Codes: NOT BILLABLE ELIE CARTER MD 02/11/25 1527: Review of Systems Allergies: Coded Allergies: NO KNOWN ALLERGIES (Unverified , 01/22/14) Assessment/Plan Assessment/Plan Patient's chart is reviewed and discussed with the nurse practitioner. Patient is seen and evaluated by me this afternoon. I agree with the nurse practitioner's evaluation, documentation, assessment and care plan as outlined. LUIS E XAVIER NP Feb 11, 2025 02:55 ELIE CARTER MD Feb 11, 2025 15:27
[2025-02-11] MEDS: ENOXAPARIN SOD 40 MG/0.4 ML SYRINGE SC SCH (10:00)
[2025-02-11] MEDS: cefTRIAXone 1GM/50ML D5W 50 ML IV SCH (10:04)
[2025-02-11] MEDS: MULTIPLE VITAMINS W/ MINERALS TAB PO SCH (10:28)
[2025-02-11] MEDS: ASCORBIC ACID 500 MG TAB PO SCH (10:28)
[2025-02-11 10:50] LABS: Chloride 104 mmol/L (98-107); Sodium 143 mmol/L (136-145)
[2025-02-11 10:51] LABS: Anion Gap 8 (5-15)
[2025-02-11 10:52] LABS: Calcium 9.6 mg/dL (8.7-10.4)
[2025-02-11 10:57] LABS: BUN/Creatinine Ratio 21.9 (10.0-20.0); Blood Urea Nitrogen 23 mg/dL (9-23); Carbon Dioxide 31 mmol/L (20-31); Potassium 3.3 mmol/L (3.5-5.1)
[2025-02-11 10:58] LABS: Glucose 108 mg/dL (74-106)
--- NOTE | 2025-02-11 16:05 | DVHSR ---
APPROVED REPORT EXAM: LIMITED Two-dimensional and M-mode echocardiogram with Doppler and color Doppler. Blood Pressure: 125/68 mmHg INDICATION Leg edema RISK FACTORS Obesity: Height: 6' 2", Weight: 287 DIMENSIONS LVDd6.9 (3.8-5.7cm)LA (2D)4.2 (1.9-4.0cm)Aortic Root3.9 (2.0-3.7cm) LVDs4.9 (2.5-4.0cm)LA (MM) (1.9-4.0cm)Aortic Cusp Exc2.0 (1.5-2.0cm) EF (%) 55.0 (55-70%)Rt. Atrium4.5 (1.9-4.0cm)Asc. Aorta cm IVSd1.1 (0.7-1.1cm)RV (D) (1.8-2.4cm) PWd1.1 (0.7-1.1cm) Mitral Valve MitralMitral Stenosis E wave0.70m/sMV Mean GR.mmHg A wave0.80m/sMV Peak GR.mmHg E/A ratio0.92D MVAcm2 Aortic Valve Aortic ValveAortic Stenosis V11.10m/Sia Mean GR.4mmHg V21.40m/Sia Peak GR.8mmHg LVOT Diameter2.4 (1.8-2.4cm)Doppler AVA3.55cm2 Pulmonic Valve V21.00m/s Other Information Quality : Technically LimitedRhythm : Technically limited study due to body habitus. Conclusion Technically difficult study. Difficult acoustic windows. Left ventricular enlargement. Left atrial enlargement. Aortic root enlargement. Dilation of the sinuses of Valsalva. Mild aortic sclerosis. Mild calcification of the sinuses of Va lsalva. Left ventricular function is preserved at 55% with normal right ventricular function. Doppler evaluation reveals no significant abnormalities. No pericardial effusion masses or vegetations.
[2025-02-11] MEDS: HYDROcodone-ACET 5/325MG TAB PO PRN (16:23)
[2025-02-11] MEDS: methylPREDNISolone SOD SUCC 40 MG/ML VL IV SCH (18:57)
[2025-02-11] MEDS: FAMOTIDINE (10MG/ML) 2ML VL IV SCH (21:43)
[2025-02-11] MEDS: POTASSIUM CHL 10 Meq TABLET PO SCH (21:44)
[2025-02-12] VITALS (7 sets, daily range): BP systolic 128–149; BP diastolic 68–77; PULSE 66–80; RESP 16–20; TEMP 97.8–98.3; O2SAT 20–94
[2025-02-12 06:27] LABS: Potassium 3.8 mmol/L (3.5-5.1); Sodium 143 mmol/L (136-145)
[2025-02-12 06:28] LABS: Anion Gap 11 (5-15); Calcium 9.7 mg/dL (8.7-10.4); Carbon Dioxide 25 mmol/L (20-31)
[2025-02-12 06:33] LABS: BUN/Creatinine Ratio 17.9 (10.0-20.0); Blood Urea Nitrogen 21 mg/dL (9-23); Chloride 107 mmol/L (98-107); Glucose 238 mg/dL (74-106); Magnesium 2.3 mg/dL (1.6-2.6)
[2025-02-12] MEDS: LORATADINE 10 MG TAB PO SCH (10:49)
--- NOTE | 2025-02-12 15:40 | DVHPN2 ---
Progress Note - Dictate Date Seen: Feb 12, 2025 Medical Necessity Reason Pt with a Central, PICC or Fol: No Subjective Says the itching and eczema rash has improved. No complaints. vital signs Vital Sign Date Time Temp Pulse Resp B/P (MAP) Pulse Ox O2 Delivery O2 Flow Rate FiO2 02/12/25 12:41 97.8 66 16 136/69 (91) 92 97.8 02/12/25 08:00 Room Air* 0 21 Total Intake and Output 02/11/25 02/11/25 02/12/25 15:00 23:00 07:00 Intake Total 1000 ml 800 ml Output Total 1200 ml Balance -200 ml 800 ml medications Current Medications Medications Dose Ordered Sig/Serge Route Start Time Stop Time Status Last Admin Dose Admin Nitroglycerin 0.4 mg Q5MINP PRN SL 02/10/25 17:30 Morphine Sulfate 2 mg Q30M PRN IV 02/10/25 17:30 Ceftriaxone Sodium 50 ml @ 100 mls/hr DAILY@09 IV 02/11/25 09:00 02/12/25 10:44 100 MLS/HR Bumetanide 1 mg BIDD IV 02/10/25 18:00 02/12/25 05:26 1 MG Acetaminophen/ Hydrocodone Bitart 1 tab Q4HPRN PRN PO 02/10/25 17:30 02/11/25 21:45 1 TAB Enoxaparin Sodium 40 mg DAILY SC 02/11/25 10:00 Diphenhydramine HCl 25 mg Q6HP PRN IV 02/10/25 23:30 02/11/25 21:45 25 MG Ascorbic Acid 500 mg BID PO 02/11/25 10:00 02/12/25 10:44 500 MG Multivitamins/ Minerals 1 tab DAILY PO 02/11/25 10:00 02/12/25 10:44 1 TAB Potassium Chloride 20 meq BID PO 02/11/25 22:00 02/12/25 10:49 20 MEQ Famotidine 20 mg Q12HR IV 02/11/25 22:00 02/12/25 10:49 20 MG Zinc Acetate/ Diphenhydramine 1 applic Q6HP PRN TOP 02/11/25 15:30 Loratadine 10 mg DAILY PO 02/12/25 10:00 02/12/25 10:49 10 MG Methylprednisolone Sodium Succinate 20 mg Q6HR IV 02/11/25 18:00 02/12/25 12:34 20 MG objective Comfortable. Ambulating. HEENT neck supple no JVD. Heart regular rate and rhythm S1 and S2. Lungs without rales wheezes. Abdomen soft nontender positive bowel sounds. Extremities improved edema and erythema. laboratory and microbiology Laboratory Tests 02/12/25 05:41 02/10/25 15:11 Test 02/12/25 05:41 Range/Units Serum Glucose 238 #H 74-106 mg/dL Assessment/Plan Diuresing well. Redness and itching has significantly improved. Continue present management overnight. If he remains stable consider discharge home tomorrow. Problems(with codes): (1) CHF (congestive heart failure) (2) Bilateral lower leg cellulitis (3) Eczema Dietary Evaluation Review Recommendations by RD: Dietary education by RD Comments: 1) Encourage optimal PO intake. If < 50%, consider oral nutrition supplement such as Ensure Enlive qd-bid 2) Initiate vitamin C @ 500 mg bid and zinc sulfate @ 220 mg qd for 7-10 days 3) Initiate senior (50+) multivitamin @ 1 tb qd 4) Refer to outpatient RD for weight management 5) Continue to monitor I&O, labs, and skin integrity Expected Outcomes/Goals: 1) appetite and labs to improve 2) wound to imporove 3) f/u in 3-5 days Plan discussed with: Patient, Other ELIE CARTER MD Feb 12, 2025 15:40
[2025-02-12] MEDS: diphenhdrAMINE-ZINC ACETATE 1 APPLIC APPL TOP PRN (20:06)
[2025-02-13 01:00] VITALS: BP 147/82; PULSE 58; RESP 19; TEMP 98.3; O2SAT 95
[2025-02-13 08:00] VITALS: RESP 18; O2SAT 94
[2025-02-13 09:00] VITALS: BP 130/74; PULSE 64; RESP 17; TEMP 97.8; O2SAT 94
[2025-02-13 13:00] VITALS: BP 137/70; PULSE 51; RESP 18; TEMP 97.4; O2SAT 94
[2025-02-13] MEDS ORDERED: CEFD300C2 PO (13:20)
[2025-02-13] MEDS ORDERED: FURO40TA4 PO (13:20)
[2025-02-13] MEDS ORDERED: POTA8TAB38 PO (13:20)
[2025-02-13] MEDS ORDERED: PERM1LIQ EX (13:20)
[2025-02-13] MEDS ORDERED: HYD25TP TOP (13:20)
--- NOTE | 2025-02-13 13:23 | DVHDS2 ---
Discharge Summary Date of Admission Feb 10, 2025 at 17:22 Date of Discharge: Feb 13, 2025 Labs/Diagnostic Data: Laboratory Results Test 02/12/25 05:41 02/10/25 15:11 Sodium Level 143 mmol/L (136-145) Potassium Level 3.8 mmol/L (3.5-5.1) Chloride Level 107 mmol/L (98-107) Carbon Dioxide Level 25 mmol/L (20-31) Anion Gap 11 (5-15) Blood Urea Nitrogen 21 mg/dL (9-23) Creatinine 1.17 mg/dL (0.700-1.30) Glomerular Filtration Rate Calc 65 mL/min (>90) BUN/Creatinine Ratio 17.9 (10.0-20.0) Serum Glucose 238 mg/dL (74-106) Calcium Level 9.7 mg/dL (8.7-10.4) Magnesium Level 2.3 mg/dL (1.6-2.6) White Blood Count 8.8 10^3/uL (4.4-10.8) Red Blood Count 4.77 10^6/uL (4.5-5.90) Hemoglobin 14.7 g/dL (13.5-17.5) Hematocrit 43.8 % (41.0-53.0) Mean Corpuscular Volume 91.9 fL (80.0-100.0) Mean Corpuscular Hemoglobin 30.9 pg (28.0-32.0) Mean Corpuscular Hemoglobin Concent 33.6 g/dL (32.0-36.0) Red Cell Distribution Width 14.7 % (11.8-14.3) Platelet Count 273 10^3/uL (140-450) Mean Platelet Volume 8.5 fL (6.9-10.8) Neutrophils (%) (Auto) 65.7 % (37.0-80.0) Lymphocytes (%) (Auto) 16.2 % (10.0-50.0) Monocytes (%) (Auto) 11.7 % (0.0-12.0) Eosinophils (%) (Auto) 5.8 % (0.0-7.0) Basophils (%) (Auto) 0.6 % (0.0-2.0) Neutrophils # (Auto) 5.8 10 ^3/uL (1.6-8.6) Lymphocytes # (Auto) 1.4 10 ^3/uL (0.4-5.4) Monocytes # (Auto) 1.0 10 ^3/uL (0-1.3) Eosinophils # (Auto) 0.5 10 ^3/uL (0-0.8) Basophils # (Auto) 0 10 ^3/uL (0-0.2) Nucleated Red Blood Cells 0.0 % B-Type Natriuretic Peptide 52.02 pg/mL (0-100) Other Laboratory Tests 02/12/25 05:41 02/10/25 15:11 Brief Hx & Hospital Course: 74-year-old male with past medical history of CHF, hypertension, hyperlipidemia presents with complaints of bilateral lower extremity swelling and redness x1 month. Patient endorsed he has previously been treated with oral antibiotics. Also endorses generalized rash throughout his torso and back states he was treated for scabies however rash continues. Patient is concerned because redness on the right lower extremities traveling up behind the kneecap. States it is normal for the redness and swelling to and midway at the calf. Patient endorses he is compliant with his medications. At this time there are no complaints of fevers, chills, shortness of breath, chest pain, palpitations, nausea, vomiting, abdominal pain He is admitted and had an echocardiogram. Patient noted to have diastolic dysfunction. Patient is advised to continue his Lasix and potassium as he is taking at home twice a day. In the hospital he received IV Lasix and diuresed well. His leg swelling and erythema edema has improved. Patient empirically treated with IV antibiotics and switch to oral antibiotic for few days. Patient also complains of generalized rash and itching. Patient received IV steroids, antihistamines while in the hospital. His rash itching has improved. Overall patient is clinically feeling better back to baseline normal status. Patient is advised to have follow up with PCP and referral to [facility] to further look at his rash. Meantime patient is prescribed pyrimethamine lotion to apply and shower daily. Also prescribed hydrocortisone cream to apply further rash till he sees [facility]. Patient verbalized understanding of this, verbalized understanding of his hospital diagnosis, treatment he received while in the hospital, discharge medications, discharge instructions and agree with the discharge follow-up plan of care Operations or Procedures EXAM: LIMITED Two-dimensional and M-mode echocardiogram with Doppler and color Doppler. Blood Pressure: 125/68 mmHg INDICATION Leg edema RISK FACTORS Obesity: Height: 6' 2", Weight: 287 DIMENSIONS LVDd 6.9 (3.8-5.7cm) LA (2D) 4.2 (1.9-4.0cm) Aortic Root 3.9 (2.0- 3.7cm) LVDs 4.9 (2.5-4.0cm) LA (MM) (1.9-4.0cm) Aortic Cusp Exc 2.0 (1.5- 2.0cm) EF (%) 55.0 (55-70%) Rt. Atrium 4.5 (1.9-4.0cm) Asc. Aorta cm IVSd 1.1 (0.7-1.1cm) RV (D) (1.8-2.4cm) PWd 1.1 (0.7-1.1cm) Mitral Valve Mitral Mitral Stenosis E wave 0.70m/s MV Mean GR. mmHg A wave 0.80m/s MV Peak GR. mmHg E/A ratio 0.9 2D MVA cm2 Aortic Valve Aortic Valve Aortic Stenosis V1 1.10m/s AO Mean GR. 4mmHg V2 1.40m/s AO Peak GR. 8mmHg LVOT Diameter 2.4 (1.8-2.4cm) Doppler EMMY 3.55cm2 Pulmonic Valve V2 1.00m/s Other Information Quality : Technically Limited Rhythm : Technically limited study due to body habitus. Conclusion Technically difficult study. Difficult acoustic windows. Left ventricular enlargement. Left atrial enlargement. Aortic root enlargement. Dilation of the sinuses of Valsalva. Mild aortic sclerosis. Mild calcification of the sinuses of Valsalva. Left ventricular function is preserved at 55% with normal right ventricular function. Doppler evaluation reveals no significant abnormalities. No pericardial effusion masses or vegetations. SIGNED BY: AMANDA LAROSE Sr., MD SIGNED DATE/TIME: 02/11/25 1586 Condition at Discharge: Stable Final Diagnosis/Problems List Cellulitis lower extremities, generalized rash/eczema Discharge Disposition: Home Discharge Instruct/Medications Diet: Consistent carbohydrate, Cardiac 2g Na,low cholest Activity: No Restrictions, As Tolerated Follow Up/Referral: Primary care physician next week and referral to [facility] for further evaluation of rash Medications: As prescribed and home medications per discharge medication list New Medications: Cefdinir (Cefdinir) 300 Mg Cap 1 CAP PO BID, #10 CAP Hydrocortone (Hydrocortisone 2.5%) 1 Applic Ap 1 APPLIC TOP BID, #60 GRAMS Permethrin ([facility] Lice Treatment) 1 % Liq 1 % EX DAILY, #1 LIQ Changed Medications: Furosemide (Furosemide) 40 Mg Tab 40 MG PO BID, #60 TAB (Medication details modified) Potassium Chloride (Klor-Con 8) 8 Meq Tab 8 MG PO BID, #60 TAB (Medication details modified) Continued Medications: Albuterol Sulfate (Ventolin Mdi) 90 Mcg Ih 90 MCG IN Q4HPRN PRN, #2 INHALER Amlodipine Besylate (Amlodipine Besylate) 10 Mg Tab #90 Carvedilol (Carvedilol) 3.125 Mg Tab #60 Diazepam (Diazepam) 10 Mg Tab #60 Hydrocodone-Acetaminophen ([place] 5/325MG) 1 Tab Tb 1 TAB PO TID PRN, #5 TAB Hydrocortone (Hydrocortisone 1%) 1 Applic Ap 1 APPLIC TOP BID for 10 Days, #5 GRAMS Lisinopril & Hydrochlorothiazi (Lisinopril/Hydrochlorothi) 1 Tab Tab 1 TAB PO DAILY, #30 TAB 5 Refills Paroxetine (Paxil Tablet) 20 Mg Tb #30 Discontinued Medications: Bacitracin-Polymyxin B (Hm Double Antibiotic) Oin 1 BOTTLE EX BID for 5 Days, #1 OIN Ciprofloxacin Hcl (Cipro) 500 Mg Tab 1 TAB PO BID, #14 TAB Levofloxacin Hemihydrate (Levofloxacin) 500 Mg Tab 1 TAB PO DAILY for 7 Days, #7 TAB Prednisone (Prednisone) 20 Mg Tab 20 MG PO DAILY for 5 Days, #5 TAB Prednisone (Prednisone) 10 Mg Tab 10 MG PO DAILY for 7 Days, #7 MG Discharge Statement: "Patient was advised to return to the ER or call 911 if any headaches, dizziness, shortness of breath, chest pain, abdominal pain, bleeding, fevers, or worsening of medical condition. Patient was counseled about treatment plan, medications, possible side effects, patientverbalized understanding. All questions were answered to the best of my ability. This discharge took greater then 30 minutes in planning, reviewing documentation, counseling the patient, and discussing with other team members." ASSESSMENT ASSESSMENT Assessment Cellulitis lower extremities, generalized rash/eczema ELIE CARTER MD Feb 13, 2025 13:22
[2025-02-13 14:59] VITALS: BP 137/72; PULSE 64; RESP 18; TEMP 98.4; O2SAT 94
== END 2025-02-13 14:59 | disposition home or self-care (01) | DRG 602 ==
LOC: ER 14:23 → OVERFLOW 17:22 → CENTRAL 22:04
PROVIDERS: ADMIT Hospitalist; ATTEND Hospitalist
DX: L03.116 Cellulitis of left lower limb (principal); I50.43 Acute on chronic combined systolic (congestive) and diastolic (congestive) heart failure; J98.11 Atelectasis; I11.0 Hypertensive heart disease with heart failure; L03.115 Cellulitis of right lower limb; L30.9 Dermatitis, unspecified; E66.9 Obesity, unspecified; Z68.37 Body mass index [BMI] 37.0-37.9, adult; E78.5 Hyperlipidemia, unspecified; I08.0 Rheumatic disorders of both mitral and aortic valves; I70.0 Atherosclerosis of aorta; J44.9 Chronic obstructive pulmonary disease, unspecified; Z79.51 Long term (current) use of inhaled steroids; Z79.899 Other long term (current) drug therapy; Z79.01 Long term (current) use of anticoagulants
CPT/HCPCS: 36415; 71046; 80048; 83735; 83880; 85025; 87081; 93306; 93970; 96365; G0378; J3490